=== PATIENT | female | born 1950 | race Hispanic/Latino ===

== ENCOUNTER 2020-12-20 17:05 | Inpatient (IN) | payer OTHER ==
--- OUTSIDE RECORDS SUMMARY | 2020-12-20 17:09 | XMS REPORT | Continuity of Care Document ---
:1950 Author Organization [facility] t Address [address] [place] [address] Care Team Providers Name Role Phone Chely Arias Primary Care Physician TAHIRA Attending Clinician Unavailable Doctor Unassigned, Name Attending Clinician Unavailable Therapy, Covid Infusion Attending Clinician Unavailable Kg MENDEZ, A Attending Clinician Elias XIAO, T Attending Clinician Unavailable Payers Payer Name Policy Type Policy Number Effective Date Expiration Date Aditi roberts [facility] MEDICARE [id number] 2020 ADVANTAGE 00:00:00 Problems Condition Condition Condition Status Onset Resolution Last Treating Co mments Source Name Details Category Date Date Treatment Clinician Date 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 [facility]: Hospita 00 l Allergies, Adverse Reactions, Alerts Allergy Allergy Status Severity Reaction(s) Onset Inactive Treating Comm ents Source Name Type Date Date Clinician Mobic Adverse Active irritation [facility] Family History Family Member Diagnosis Comments Start Date Stop Date Source Other [facility] Other [facility] Natural brother Hypertension [facility] Natural brother Thyroid disease Meth odist [facility] Natural father Cancer [facility] Natural mother Cancer [facility] Natural mother Hypertension [facility] Natural mother Lung cancer [facility] mother Migraines [facility] Social History Social Habit Start Date Stop Date Quantity Comments Source Exposure to Yes [facility] SARS-CoV-2 [place] [facility] (event) [facility] Tobacco use and 2018-12-18 2018-12-18 Never used [facility] exposure 00:00:00 00:00:00 Alcohol intake 2018-12-18 2018-12-18 Current [facility] 00:00:00 00:00:00 non-drinker of alcohol (finding) Sex [birth year] [facility] 00:00:00 00:00:00 Smoking Status Start Date Stop Date Source Unknown if ever smoked [facility] Never smoker [facility] al Medications Ordered Filled Start Stop Current Ordering Indication Dosage Frequency Signature Comments Components Source Medication Medication Date Date Medication? Clinician (SIG) Name Name naproxen Yes [id number] TAKE ONE UT (Naprosyn) 8-31 TABLET BY Heal th 500 MG 00:00: MOUTH tablet 00 TWICE A DAY golimumab Yes 1{dose} Q30D Inject 1 M ethodi (SIMPONI 3-[address] ARIA IV) 23:33: the Hospita 35 shoulder, l thigh, or buttocks every 30 (thirty) days. Next dose 07/2018 sulfaSALAzi Yes 1000mg Q.5D Take 1,000 Methodi ne 3-[address] (AZULFIDINE 23:33: mouth 2 Hos derian ) 500 mg 35 (two) l tablet times a day. cyclobenzap Yes 10mg Take 10 mg Methodi rine 3-[address] (FLEXERIL) 23:33: as needed Ho spita 10 mg 35 for muscle l tablet spasms. irbesartan Yes 300mg QD Take 300 Me thodi (AVAPRO) 3-[address] 300 MG 23:33: mouth Hospita tablet 35 daily. l predniSONE Yes 5mg Take 5 mg Me thodi (DELTASONE) 3-[address] 5 mg tablet 23:33: as needed. Hospita 35 l carvedilol Yes 12.5mg Q.5D Take 12.5 Methodi (COREG) 3-[address] 12.5 MG 23:33: mouth 2 Hospita tablet 35 (two) l times a day with meals. montelukast Yes 10mg QD Take 10 mg Methodi (SINGULAIR) 3-[address] 10 mg 23:33: nightly. Hospita tablet 35 l levocetiriz Yes 5mg Take 5 mg M ethodi ine (XYZAL) 3-[address] 5 MG tablet 23:33: as needed. Hospita 35 l Lactobacill Yes 1{tbl} QD Take 1 Me thodi us 3-[address] acidophilus 23:33: mouth Hospi ta (PROBIOTIC 35 daily. l ORAL) vitamin E Yes 1{tbl} QD Take 1 Meth damaris acetate 3-[address] (VITAMIN E 23:33: mouth Hospit a ORAL) 35 daily. l ascorbate Yes 1000mg QD Take 1,000 Methodi calcium 3-[address] (VITAMIN C 23:33: mouth Hospit a ORAL) 35 daily. l hydroCHLORO Yes 12.5mg QD Take 12.5 Methodi thiazide 3-[address] (HYDRODIURI 23:33: mouth Hospi ta L) 12.5 MG 35 daily. l tablet aspirin Yes 81mg QD Take 81 mg Meth damaris (ECOTRIN) 3-[address] 81 MG 23:33: daily. Hospita enteric 35 l coated tablet folic acid Yes 1mg QD Take 1 mg Me thodi (FOLVITE) 1 3-[address] MG tablet 23:33: daily. Hospit a 35 l Tramadol Tramadol Yes Maulik [address] [address] HCl HCl 01-08 [facility] as needed [facility] Carvedilol Carvedilol Yes Maulik as [facility] 01[facility]08 [facility] directed [facility] - Yes Maulik [address] [facility] [address] 01-08 [facility] Xeljanz XR Xeljanz XR Yes Maulik [address] [facility] 01-08 [facility] Celebrex Celebrex Yes Maulik [address] 01-08 [place] with food [facility] Lisinopril Lisinopril 2017- Yes Maulik [address] [facility] [address] 01[facility]08 [facility] Gabapentin Gabapentin 2017-0 Yes Maulik [address] 01[facility]08 [facility] [facility] PrednisoLON PrednisoLON 2017- Yes Maulik [address] E E 01-08 [place] with food [facility] - 00:00: or milk in Memoria 00 the l morning Outpati ent Clinics Lactobacill Yes Take by Un thais us 8-07 mouth. ity of acidophilus 06:57: [place] (PROBIOTIC 55 Medical ORAL) Branch METHOTREXAT Yes Take by Un thais E ORAL 8-07 mouth. ity of 06:57: [place] [address] Medical Branch vitamin E Yes Take by Univ ers acetate 8-07 mouth. ity of (VITAMIN E 06:57: [place] ORAL) 55 Medical Branch ergocalcife Yes Take by Un thais rol, 8-07 mouth. ity of vitamin D2, 06:57: [place] (VITAMIN D 55 Medical ORAL) Branch Lactobacill Yes Take by Un thais us 8-07 mouth. ity of acidophilus 06:57: [place] (PROBIOTIC 55 Medical ORAL) Branch METHOTREXAT Yes Take by Un thais E ORAL 8-07 mouth. ity of 06:57: [place] [address] Medical Branch vitamin E Yes Take by Univ ers acetate 8-07 mouth. ity of (VITAMIN E 06:57: [place] ORAL) Medical Branch ergocalcife Yes Take by Un thais rol, 8-07 mouth. ity of vitamin D2, 06:57: [place] (VITAMIN D 55 Medical ORAL) Branch Lactobacill Yes Take by Un thais us 8-07 mouth. ity of acidophilus 06:57: [place] (PROBIOTIC 55 Medical ORAL) Branch METHOTREXAT Yes Take by Un thais E ORAL 8-07 mouth. ity of 06:57: [place] [address] Medical Branch vitamin E Yes Take by Univ ers acetate 8-07 mouth. ity of (VITAMIN E 06:57: [place] ORAL) 55 Medical Branch ergocalcife Yes Take by Un thais rol, 8-07 mouth. ity of vitamin D2, 06:57: [place] (VITAMIN D 55 Medical ORAL) Branch Lactobacill Yes Take by Un thais us 8-07 mouth. ity of acidophilus 06:57: [place] (PROBIOTIC 55 Medical ORAL) Branch METHOTREXAT Yes Take by Un thais E ORAL 8-07 mouth. ity of 06:57: [place] 55 Medical Branch vitamin E Yes Take by Univ ers acetate 8-07 mouth. ity of (VITAMIN E 06:57: [place] ORAL) 55 Medical Branch ergocalcife Yes Take by Un thais rol, 8-07 mouth. ity of vitamin D2, 06:57: [place] (VITAMIN D 55 Medical ORAL) Branch Lactobacill Yes Take by Un thais us 8-07 mouth. ity of acidophilus 06:57: [place] (PROBIOTIC 55 Medical ORAL) Branch METHOTREXAT Yes Take by Un thais E ORAL 8-07 mouth. ity of 06:57: [place] 55 Medical Branch vitamin E Yes Take by Univ ers acetate 8-07 mouth. ity of (VITAMIN E 06:57: [place] ORAL) 55 Medical Branch ergocalcife Yes Take by Un thais rol, 8-07 mouth. ity of vitamin D2, 06:57: [place] (VITAMIN D 55 Medical ORAL) Branch Lactobacill Yes Take by Un thais us 8-07 mouth. ity of acidophilus 06:57: [place] (PROBIOTIC 55 Medical ORAL) Branch METHOTREXAT Yes Take by Un thais E ORAL 8-07 mouth. ity of 06:57: [place] 55 Medical Branch vitamin E Yes Take by Univ ers acetate 8-07 mouth. ity of (VITAMIN E 06:57: [place] ORAL) 55 Medical Branch ergocalcife Yes Take by Un thais rol, 8-07 mouth. ity of vitamin D2, 06:57: [place] (VITAMIN D 55 Medical ORAL) Branch Lactobacill Yes Take by Un thais us 8-07 mouth. ity of acidophilus 06:57: [place] (PROBIOTIC 55 Medical ORAL) Branch METHOTREXAT Yes Take by Un thais E ORAL 8-07 mouth. ity of 06:57: [place] 55 Medical Branch vitamin E Yes Take by Univ ers acetate 8-07 mouth. ity of (VITAMIN E 06:57: [place] ORAL) 55 Medical Branch ergocalcife Yes Take by Un thais rol, 8-07 mouth. ity of vitamin D2, 06:57: [place] (VITAMIN D 55 Medical ORAL) Branch tofacitinib Yes Take by Un thais citrate 8-07 mouth. ity of (XELJANZ 06:57: [place] ORAL) 54 Medical Branch montelukast Yes Take by Un thais sodium 8-07 mouth. ity of (SINGULAIR 06:57: [place] ORAL) 54 Medical Branch LISINOPRIL Yes Take by Uni vers ORAL 8-07 mouth. ity of 06:57: [place] [address] Medical Branch CELECOXIB Yes Take by Univ ers ORAL 8-07 mouth. ity of 06:57: [place] [address] Medical Branch tofacitinib Yes Take by Un thais citrate 8-07 mouth. ity of (XELJANZ 06:57: [place] ORAL) 54 Medical Branch tramadol Yes Take by Unive rs HCl 8-07 mouth. ity of (TRAMADOL 06:57: [place] ORAL) 54 Medical Branch montelukast Yes Take by Un thais sodium 8-07 mouth. ity of (SINGULAIR 06:57: [place] ORAL) 54 Medical Branch tramadol Yes Take by Unive rs HCl 8-07 mouth. ity of (TRAMADOL 06:57: [place] ORAL) 54 Medical Branch CARVEDILOL Yes Take by Uni vers ORAL 8-07 mouth. ity of 06:57: [place] [address] Medical Branch aspirin 81 Yes 81mg Take 81 mg U nivers mg chewable 11-21 by mouth ity of tablet 06:57: daily. [place] [address] Medical Branch FOLIC ACID Yes Take by Uni vers ORAL 8-07 mouth. ity of 06:57: [place] [address] Medical Branch ascorbate Yes Take by Univ ers calcium 8-07 mouth. ity of (VITAMIN C 06:57: [place] ORAL) 54 Medical Branch CARVEDILOL Yes Take by Uni vers ORAL 8-07 mouth. ity of 06:57: [place] [address] Medical Branch LISINOPRIL Yes Take by Uni vers ORAL 8-07 mouth. ity of 06:57: [place] [address] Medical Branch CELECOXIB 2018-0 Yes Take by Univ ers ORAL 8-07 mouth. ity of 06:57: [place] [address] Medical Branch tofacitinib Yes Take by Un thais citrate 8-07 mouth. ity of (XELJANZ 06:57: [place] ORAL) Medical Branch montelukast Yes Take by Un thais sodium 8-07 mouth. ity of (SINGULAIR 06:57: [place] ORAL) Medical Branch aspirin 81 0 Yes 81mg Take 81 mg U nivers mg chewable 8-07 by mouth ity of tablet 06:57: daily. [place] [address] Medical Branch tramadol Yes Take by Unive rs HCl 8-07 mouth. ity of (TRAMADOL 06:57: [place] ORAL) Medical Branch CARVEDILOL Yes Take by Uni vers ORAL 8-07 mouth. ity of 06:57: [place] [address] Medical [place] aspirin 81 Yes 81mg Take 81 mg U nivers mg chewable 8-07 by mouth ity of tablet 06:57: daily. [place] [address] Medical Branch FOLIC ACID Yes Take by Uni vers ORAL 8-07 mouth. ity of 06:57: [place] [address] Medical Branch ascorbate 0 Yes Take by [facility] ers calcium 8-07 mouth. ity of (VITAMIN C 06:57: [place] ORAL) Medical Branch FOLIC ACID 0 Yes Take by Uni vers ORAL 8-07 mouth. ity of 06:57: [place] [address] Medical Branch ascorbate 2018-0 Yes Take by [facility] ers calcium 8-07 mouth. ity of (VITAMIN C 06:57: [place] ORAL) Medical Branch LISINOPRIL 2017- Yes Take by Uni vers ORAL 8-07 mouth. ity of 06:57: [place] [address] Medical Branch CELECOXIB 2017-0 Yes Take by Univ ers ORAL 8-07 mouth. ity of 06:57: [place] [address] Medical Branch tofacitinib 2017-0 Yes Take by Un thais citrate 8-07 mouth. ity of (XELJANZ 06:57: [place] ORAL) Medical Branch montelukast 2017- Yes Take by Un thais sodium 8-07 mouth. ity of (SINGULAIR 06:57: [place] ORAL) Medical Branch tramadol 2018-0 Yes Take by Unive rs HCl 8-07 mouth. ity of (TRAMADOL 06:57: [place] ORAL) Medical Branch CARVEDILOL Yes Take by Uni vers ORAL 8-07 mouth. ity of 06:57: [address] Branch aspirin 81 Yes 81mg Take 81 mg U nivers mg chewable 8-07 by mouth ity of tablet 06:57: daily. [address] Branch FOLIC ACID Yes Take by Uni vers ORAL 8-07 mouth. ity of 06:57: [place] [address] Medical Branch ascorbate 0 Yes Take by Univ ers calcium 8-07 mouth. ity of (VITAMIN C 06:57: [place] ORAL) Medical Branch LISINOPRIL Yes Take by Uni vers ORAL 8-07 mouth. ity of 06:57: [place] [address] Medical Branch CELECOXIB Yes Take by Univ ers ORAL 8-07 mouth. ity of 06:57: [address] Branch tofacitinib Yes Take by Un thais citrate 8-07 mouth. ity of (XELJANZ 06:57: [place] ORAL) Medical Branch montelukast Yes Take by Un thais sodium 8-07 mouth. ity of (SINGULAIR 06:57: [place] ORAL) Medical Branch tramadol Yes Take by Unive rs HCl 8-07 mouth. ity of (TRAMADOL 06:57: [place] ORAL) Medical Branch CARVEDILOL Yes Take by Uni vers ORAL 8-07 mouth. ity of 06:57: [address] aspirin 81 Yes 81mg Take 81 mg U nivers mg chewable 8-07 by mouth ity of tablet 06:57: daily. [address] Branch FOLIC ACID Yes Take by Uni vers ORAL 8-07 mouth. ity of 06:57: [place] [address] Medical [place] ascorbate Yes Take by Univ ers calcium 8-07 mouth. ity of (VITAMIN C 06:57: [place] ORAL) Medical Branch LISINOPRIL Yes Take by Uni vers ORAL 8-07 mouth. ity of 06:57: [address] CELECOXIB Yes Take by Univ ers ORAL 8-07 mouth. ity of 06:57: [place] [address] Medical Branch tofacitinib 2018-0 Yes Take by Un thais citrate 8-07 mouth. ity of (XELJANZ 06:57: [place] ORAL) Medical Branch montelukast Yes Take by Un thais sodium 8-07 mouth. ity of (SINGULAIR 06:57: [place] ORAL) Medical Branch tramadol 0 Yes Take by Unive rs HCl 8-07 mouth. ity of (TRAMADOL 06:57: [place] ORAL) Medical Branch CARVEDILOL Yes Take by Uni vers ORAL 8-07 mouth. ity of 06:57: [address] Branch aspirin 81 Yes 81mg Take 81 mg U nivers mg chewable 8-07 by mouth ity of tablet 06:57: daily. [address] Branch FOLIC ACID Yes Take by Uni vers ORAL 8-07 mouth. ity of 06:57: [address] ascorbate Yes Take by Univ ers calcium 8-07 mouth. ity of (VITAMIN C 06:57: [place] ORAL) [address] [place] [address] LISINOPRIL Yes Take by Uni vers ORAL 8-07 mouth. ity of 06:57: [address] Branch CELECOXIB Yes Take by Univ ers ORAL 8-07 mouth. ity of 06:57: [address] LISINOPRIL Yes Take by Uni vers ORAL 8-07 mouth. ity of 06:57: [address] CELECOXIB Yes Take by Univ ers ORAL 8-07 mouth. ity of 06:57: [address] tofacitinib Yes Take by Un thais citrate 8-07 mouth. ity of (XELJANZ 06:57: [place] ORAL) Medical [place] montelukast Yes Take by Un thais sodium 8-07 mouth. ity of (SINGULAIR 06:57: [place] ORAL) Medical Branch tramadol 20180 Yes Take by Unive rs HCl 8-07 mouth. ity of (TRAMADOL 06:57: [place] ORAL) Medical Branch CARVEDILOL 0 Yes Take by Uni vers ORAL 8-07 mouth. ity of 06:57: [address] aspirin 81 Yes 81mg Take 81 mg U nivers mg chewable 8-07 by mouth ity of tablet 06:57: daily. [place] 54 Medical Branch FOLIC ACID 2018-0 Yes Take by Uni vers ORAL 8-07 mouth. ity of 06:57: [place] [address] Medical Branch ascorbate 0 Yes Take by Univ ers calcium 8-07 mouth. ity of (VITAMIN C 06:57: [place] ORAL) 54 Medical Branch butalbital- Yes 1{tbl} Take 1 Un thais acetaminoph 8-07 tablet by ity of en-caff 00:00: mouth [place] 50-325-40 00 every 6 Medical mg tablet (six) Branch hours as needed for Headache (Headache) . butalbital- Yes 1{tbl} Take 1 Un thais acetaminoph 8-07 tablet by ity of en-caff 00:00: mouth [place] 50-325-40 00 every 6 Medical mg tablet (six) Branch hours as needed for Headache (Headache) . butalbital- Yes 1{tbl} Take 1 Un thais acetaminoph 8-07 tablet by ity of en-caff 00:00: mouth [place] 50-325-40 00 every 6 Medical mg tablet (six) Branch hours as needed for Headache (Headache) . butalbital- Yes 1{tbl} Take 1 Un thais acetaminoph 8-07 tablet by ity of en-caff 00:00: mouth [place] 50-325-40 00 every 6 Medical mg tablet (six) Branch hours as needed for Headache (Headache) . butalbital- Yes 1{tbl} Take 1 Un thais acetaminoph 8-07 tablet by ity of en-caff 00:00: mouth [place] 50-325-40 00 every 6 Medical mg tablet (six) Branch hours as needed for Headache (Headache) . butalbital- Yes 1{tbl} Take 1 Un thais acetaminoph 8-07 tablet by ity of en-caff 00:00: mouth [place] 50-325-40 00 every 6 Medical mg tablet (six) Branch hours as needed for Headache (Headache) . butalbital- Yes 1{tbl} Take 1 Un thais acetaminoph 8-07 tablet by ity of en-caff 00:00: mouth [place] 50-325-40 00 every 6 Medical mg tablet (six) Branch hours as needed for Headache (Headache) . Montelukast Montelukast Yes Maulik not [facility] Sodium Sodium [facility] defined [facility] Celecoxib Celecoxib Yes Maulik not [facility] cyclobenzap cyclobenzap Yes Maulik not [facility] rine rine [facility] defined [facility] Irbesartan Irbesartan Yes Maulik not [facility] Sulfasalazi Sulfasalazi Yes Maulik not [facility] ne ne [facility] defined [facility] Rinvoq Rinvoq Yes Maulik not [facility] defined [facility] Levocetiriz Levocetiriz Yes Maulik not [facility] ine-Loratad ine-Loratad [facility] defined [facility] Folic Acid Folic Acid Yes Maulik not [facility] defined [facility] Immunizations Ordered Filled Immunization Date Status Comments [facility] Immunization Name Name SARS-COV-2 COVID-19 2020-06-13 Completed Unive rsity of PFIZER VACCINE 00:00:00 [facility] SARS-COV-2 COVID-19 2020-06-13 Completed Unive rsity of PFIZER VACCINE 00:00:00 [facility] SARS-COV-2 COVID-19 2020-06-13 Completed Unive rsity of PFIZER VACCINE 00:00:00 [facility] SARS-COV-2 COVID-19 2020-06-13 Completed Unive rsity of PFIZER VACCINE 00:00:00 [facility] SARS-COV-2 COVID-19 2020-06-13 Completed Unive rsity of PFIZER VACCINE 00:00:00 [facility] SARS-COV-2 COVID-19 2020-06-13 Completed Unive rsity of PFIZER VACCINE 00:00:00 [facility] SARS-COV-2 COVID-19 2020-06-13 Completed Unive rsity of PFIZER VACCINE 00:00:00 [facility] SARS-COV-2 COVID-19 2020-05-16 Completed Unive rsity of PFIZER VACCINE 00:00:00 [facility] SARS-COV-2 COVID-19 2020-05-16 Completed Unive rsity of PFIZER VACCINE 00:00:00 [facility] SARS-COV-2 COVID-19 2020-05-16 Completed Unive rsity of PFIZER VACCINE 00:00:00 [facility] SARS-COV-2 COVID-19 2020-05-16 Completed Unive rsity of PFIZER VACCINE 00:00:00 [facility] SARS-COV-2 COVID-19 2020-05-16 Completed Unive rsity of PFIZER VACCINE 00:00:00 [facility] SARS-COV-2 COVID-19 2020-05-16 Completed Unive rsity of PFIZER VACCINE 00:00:00 [facility] SARS-COV-2 COVID-19 2020-05-16 Completed Unive rsity of PFIZER VACCINE 00:00:00 [facility] Vital Signs Vital Name Observation Time Observation Value Comments Source Systolic blood 2020-12-12 17:26:00 99 mm[Hg] Univer sity of pressure [facility] Diastolic blood 2020-12-12 17:26:00 51 mm[Hg] Unive rsity of pressure [facility] Heart rate 2020-12-12 17:26:00 83 /min [facility] Body temperature 2020-12-12 17:26:00 36.72 Jessica [facility] Respiratory rate 2020-12-12 17:26:00 20 /min [facility] Oxygen saturation in 2020-12-12 17:26:00 96 /min [facility] Arterial blood by [facility] Pulse oximetry [place] Body height 2020-12-12 16:43:00 170.2 cm [facility] Body weight 2020-12-12 16:43:00 81.647 kg [facility] BMI 2020-12-12 16:43:00 28.19 kg/m2 [facility] Procedures Procedure Date / Time Performed Performing Clinician Wei SIMONSC2 CONSENT 2020-12-18 05:01:00 Doctor Unassigned, No Unive rsity of [facility] [place] [facility] CONSENT/REFUSAL FOR 2020-12-12 05:01:00 [facility], [facility] AND Name Medical Branch TREATMENT Plan of Care Planned Activity Planned Date Details Comments Source Future Scheduled Test COVID-19 VACCINE (1) [facility] [code = COVID-19 VACCINE (1)] Future Scheduled Test Hepatitis C screening [facility] (procedure) [code = 093875313] Future Scheduled Test BREAST CANCER SCREENING [facility] [code = BREAST CANCER SCREENING] Future Scheduled Test COLONOSCOPY SCREENING [facility] [code = COLONOSCOPY SCREENING] Future Scheduled Test SHINGLES VACCINES (#1) [facility] [code = SHINGLES VACCINES (#1)] Future Scheduled Test 65+ PNEUMOCOCCAL Me [facility] VACCINE (1 of 1 - PPSV23) [code = 65+ PNEUMOCOCCAL VACCINE (1 of 1 - PPSV23)] Future Scheduled Test INFLUENZA VACCINE [code [facility] = INFLUENZA VACCINE] Encounters Start End Encounter Admission Attending Care Care Encounter Source Date/Time Date/Time Type Type Clinicians Facility Department ID 2020-10-06 Outpatient [facility] [id number] [place] 13:18:15 [facility] 2020-12-18 2020-12-18 Orders Doctor NILSA [id number] [id number] Univers 00:00:00 00:00:00 Only Unassigned, JASEN [id number] ity of [place] [facility] [id number] Trung as [phone] [facility] ananbella 009 Branch 2020-12-12 2020-12-12 Nurse Therapy, Adc Covid Infusion [facility] [id number] Univers 08:34:40 09:34:40 Visit Brian Saul [id number] [id number] [id number] [facility] 053 Branch 2020-12-12 2020-12-12 Orders Doctor NILSA [id number] Univers 00:00:00 00:00:00 Only Unassigned, JASEN [id number] ity [facility] [place] [facility] [id number] Trung as [phone] [facility] annabella 009 Branch 2020-12-10 2020-12-10 Letter NILSA Griffin 1.2.840.114 [id number] Univers 00:00:00 00:00:00 (Out) Anabel T JASEN [id number] it y of HOSPITAL [id number] [place] as [id number] [facility] 019 Branch 2020-12-08 2020-12-08 Letter Doctor NILSA 1.2.840.114 [id number] Univers 00:00:00 00:00:00 (Out) Unassigned, JASEN [id number] ity of [place] [facility] [id number] Trung as [id number] [facility] 044 [place] 2020-12-08 2020-12-08 Letter Doctor NILSA [id number] [id number] Univers 00:00:00 00:00:00 (Out) Unassigned, JASEN [id number] ity of [place] [facility] [id number] Trung as [phone] [address] 2020-12-08 2020-12-08 Letter Doctor NILSA 1.2.840.114 [id number] Univers 00:00:00 00:00:00 (Out) Unassigned, JASEN [id number] ity of [place] [facility] [id number] Trung as [id number] [address] 2020-12-04 2020-12-04 Refill Tahira [facility] 1.2.840.114 [id number] [place] 00:00:00 00:00:00 Son CORLEYBRAN [id number] H [facility] MEDICAL [id number] [place] 4 [id number] 2020-12-04 2020-12-04 Refill Tahira [facility] 1.2.840.114 [id number] 00:00:00 00:00:00 Marilynbryan ANTONIO [id number] MEDICAL [id number] [place] 3 [id number] 2020-10-27 2020-10-27 Telephone CYNTHIA Hoffmann [facility] [id number] 00:00:00 00:00:00 Son MARISELA [id number] MEDICAL [id number] [place] 1 [id number] 2020-10-08 2020-10-08 Office CYNTHIA Hoffmann [facility] 1.2.840.114 [id number] 11:30:28 12:40:02 Visit Son ANTONIO [id number] MEDICAL [id number] PLAZA [id number] 2020-10-07 2020-10-07 Abstract CYNTHIA Hoffmann [facility] [id number] 00:00:00 00:00:00 Son ANTONIO [id number] MEDICAL [id number] PLAZA [id number] 2020-02-17 2020-02-17 [facility] [id number] 2020-02-11 2020-02-11 [facility] [id number] [facility] 2020-01-27 2020-01-27 [facility] [id number] [facility] 2020-01-23 2020-01-23 [facility] [id number] [facility] 2019-12-31 2019-12-31 [facility] [id number] [facility] 2019-11-18 2019-11-18 [facility] [id number] [address] 10:30:00 10:30:00 [facility] 2019-10-16 2019-10-16 [facility] [id number] [address] 09:45:00 09:45:00 [facility] 2019-10-08 2019-10-08 [facility] [id number] [address] 09:42:00 09:42:00 [facility] 2019-10-07 2019-10-07 [facility] [id number] [address] 22:11:00 22:11:00 [facility] 2019-09-26 2019-09-26 [facility] [id number] [address] 13:00:00 13:00:00 [facility] 2019-09-23 2019-09-23 [facility] [id number] [address] 15:09:00 15:09:00 [facility] 2019-09-17 2019-09-17 [facility] [id number] 10:30:00 10:30:00 [facility] 2018-12-19 2018-12-19 [facility] [id number] 14:00:00 14:00:00 [facility] 2018-06-07 2018-06-07 [facility] [id number] [facility] 10:30:00 10:30:00 t [facility] 2018-04-19 2018-04-19 [facility] [id number] 13:30:00 13:30:00 [facility] 2018-01-08 2018-01-08 [facility] [id number] 10:00:00 10:00:00 [facility] Results This patient has no known results.
[2020-12-20] MEDS ORDERED: METHYLPREDNISOLONE 125 MG INJ ONE (18:00)
--- NOTE | 2020-12-20 18:17 | RAD REPORT ---
EXAM DESCRIPTION: RAD - Chest Single View - 12/20/2020 6:08 pm CLINICAL HISTORY: cough COMPARISON: CHEST SINGLE VIEW dated 12/10/2013; CHEST PA AND LAT 2 VIEW dated 11/21/2013; CHEST PA AND LAT 2 VIEW dated 09/20/2008; CHEST SINGLE VIEW dated 10/25/2007 FINDINGS: Lines: None. Lungs: Mild to mild irregular airspace disease bilaterally with areas of more confluence in the left lung base. Pleural: No significant pleural effusions or pneumothorax. Cardiac: The heart size is within normal limits. Bones: No acute fractures. Other: IMPRESSION: Mild to mild bilateral irregular airspace disease concerning for multifocal pneumonia, i ncluding Covid-19
--- NOTE | 2020-12-20 18:21 | EDPHYS ---
Physician Documentation [facility] Name: Yulissa Garcia Age: 70 yrs Sex: Female : 1950 Arrival Date: 12/20/2020 Time: 17:15 Bed 8 Private MD: ED Physician Nick Saul HPI: 12/20 18:13 This 70 yrs old Female presents to ER via EMS with complaints of Shortness Of sp3 Breath, COVID Positive. 18:13 70-year-old female with history of rheumatoid arthritis and COVID-19 positive status sp3 having already received Regeneron and is on home O2 now presents via EMS for worsening symptoms of dyspnea and hypoxia at home. Patient had Pfizer vaccine full course. Upon EMS arrival patient's O2 saturation on 4 L nasal cannula (although she had a really long cannula line) was 75%. Upon placing patient on nonrebreather mask, oxygen level improved to low 90s. Patient denies headache, chest pain, fever, abdominal pain, nausea, vomiting, any other symptoms at this time.. Historical: - Allergies: 17:04 No Known Allergies; rb3 - PMHx: 17:04 hypertension; Rheumotoid Arthritis; rb3 - Immunization history:: Adult Immunizations up to date, Client reports receiving the 2nd dose of the Covid vaccine, In June 2020 [employer]. - Social history:: Smoking status: Patient/guardian denies using. ROS: 18:17 Constitutional: Negative for fever, chills, and weight loss, Eyes: Negative for injury, sp3 pain, redness, and discharge, Neck: Negative for injury, pain, and swelling, Cardiovascular: Negative for chest pain, palpitations, and edema, Abdomen/GI: Negative for abdominal pain, nausea, vomiting, diarrhea, and constipation, Back: Negative for injury and pain, MS/Extremity: Negative for injury and deformity, Skin: Negative for injury, rash, and discoloration, Neuro: Negative for headache, weakness, numbness, tingling, and seizure, Psych: Negative for depression, anxiety, suicide ideation, homicidal ideation, and hallucinations, Allergy/Immunology: Negative for hives, rash, and allergies. 18:17 All other systems are negative. Exam: 18:17 Constitutional: This is a well developed, well nourished patient who is awake, alert, sp3 and in no acute distress. Head/Face: Normocephalic, atraumatic. Neck: Trachea midline, no thyromegaly or masses palpated, and no cervical lymphadenopathy. Supple, full range of motion without nuchal rigidity, or vertebral point tenderness. No Meningismus. Chest/axilla: Normal chest wall appearance and motion. Nontender with no deformity. No lesions are appreciated. Cardiovascular: Regular rate and rhythm with a normal S1 and S2. No gallops, murmurs, or rubs. Normal PMI, no JVD. No pulse deficits. Abdomen/GI: Soft, non-tender, with normal bowel sounds. No distension or tympany. No guarding or rebound. No evidence of tenderness throughout. Back: No spinal tenderness. No costovertebral tenderness. Full range of motion. Skin: Warm, dry with normal turgor. Normal color with no rashes, no lesions, and no evidence of cellulitis. Neuro: Awake and alert, GCS 15, oriented to person, place, time, and situation. Cranial nerves II-XII grossly intact. Motor strength 5/5 in all extremities. Sensory grossly intact. Cerebellar exam normal. Normal gait. Psych: Awake, alert, with orientation to person, place and time. Behavior, mood, and affect are within normal limits. 18:17 Respiratory: Exam negative for accessory muscles, bronchial sounds, chest pain, paradoxical movement, purse lip breathing, prolonged exhalation, respiratory distress, tachypnea, Respirations: Breath sounds: rales, rhonchi, Patient had labored breathing until she was placed on nonrebreather. While on oxygen, she exhibits no signs of respiratory distress.. Vital Signs: 17:04 BP 132 / 49; Pulse 54; Resp 25; Temp 98.0; Pulse Ox 97% ; Weight 81.65 kg; Height 5 ft. rb3 7 in. (170.18 cm); Pain 0/10; 18:00 BP 128 / 64; Pulse 57; Resp 22; Pulse Ox 91% on 6 lpm NC; rb3 20:30 BP 134 / 64; Pulse 55; Resp 14; Pulse Ox 96% on 6 lpm NC; jb4 21:30 BP 121 / 57; Pulse 58; Resp 12; Pulse Ox 96% on 5 lpm NC; jb4 17:04 Body Mass Index 28.19 (81.65 kg, 170.18 cm) rb3 MDM: 17:26 Patient medically screened. sp3 18:18 Data reviewed: vital signs, nurses notes, lab test result(s), EKG, radiologic studies. 3 ED course: Patient now O2 dependent and meets inpatient criteria for hypoxia secondary to viral COVID-19 pneumonia. Will admit to hospitalist team for continued care. Will start Lovenox, steroids IV, and maintain oxygen support. Patient is okay with the plan and has no further questions.. 12/20 17:26 Order name: Basic Metabolic Panel 3 12/20 17:26 Order name: CBC with Diff 3 12/20 17:26 Order name: LFT's sp3 12/20 17:26 Order name: Magnesium sp3 12/20 17:26 Order name: NT PRO-BNP 3 12/20 17:26 Order name: PT-INR 3 12/20 17:26 Order name: Troponin (emerg Dept Use Only) 3 12/20 17:26 Order name: Ferritin 3 12/20 17:26 Order name: CRP 3 12/20 19:17 Order name: CBC with Automated Diff EDPA 12/20 19:28 Order name: Protime (+INR) EDMS 12/20 19:39 Order name: Basic Metabolic Panel EDMS 12/20 19:39 Order name: Liver (Hepatic) Function EDMS 12/20 19:39 Order name: Troponin (Emerg Dept Use Only) EDPA 12/20 17:26 Order name: XRAY Chest (1 view) 3 12/20 17:26 Order name: EKG; Complete Time: 21:18 3 12/20 17:26 Order name: Cardiac monitoring; Complete Time: 18:41 3 12/20 17:26 Order name: EKG - Nurse/Tech; Complete Time: 19:59 3 12/20 17:26 Order name: IV Saline Lock; Complete Time: 18:40 3 12/20 17:26 Order name: Labs collected and sent; Complete Time: 18:40 3 12/20 17:26 Order name: O2 Per Protocol; Complete Time: 18:41 3 12/20 17:26 Order name: O2 Sat Monitoring; Complete Time: 18:41 3 12/20 18:17 Order name: RAD; Complete Time: 18:21 EDPA 12/20 19:39 Order name: NT PRO-BNP EDMS 12/20 19:39 Order name: C-Reactive Protein EDMS 12/20 19:39 Order name: Magnesium EDMS 12/20 21:39 Order name: Ferritin EDMS Administered Medications: 17:43 Drug: SOLU-Medrol (methylPrednisoLONE) 125 mg Route: IVP; Site: right forearm; rb3 18:00 Follow up: Response: No adverse reaction rb3 Disposition Summary: 12/20/20 18:20 Hospitalization Ordered Hospitalization Status: Inpatient Admission sp3 Condition: Stable sp3 Problem: an acute exacerbation sp3 Symptoms: are unchanged sp3 Bed/Room Type: Standard sp3 Provider: Raji Mo(12/20/20 18:27) sp3 Location: Telemetry/MedSurg (Inpatient)(12/20/20 20:35) cg Room Assignment: [facility](12/20/20 20:35) cg Diagnosis - Pneumonia due to SARS-associated coronavirus sp3 - Acute respiratory failure with hypoxia sp3 Forms: - Medication Reconciliation Form sp3 - SBAR form sp3 Signatures: Dispatcher [employer] EDMarta Fernandes RN DAMEON iw Ambika Garcia RN RN cg Lori Mojica RN RN rb3 Nick Saul MD MD sp3 Corrections: (The following items were deleted from the chart) 18:22 18:20 El Lindquist sp3 iw 18:27 18:22 Nelson Esparza iw sp3 20:35 18:20 Telemetry/MedSurg (Inpatient) sp3 cg 20:35 18:20 sp3 cg
--- NOTE | 2020-12-20 18:21 | ER ---
Nurse's Notes [facility] Name: Yulissa Garcia Age: 70 yrs Sex: Female : 1950 Arrival Date: 12/20/2020 Time: 17:15 Bed 8 Private MD: Diagnosis: Pneumonia due to SARS-associated coronavirus;Acute respiratory failure with hypoxia Presentation: 12/20 17:04 Chief complaint: EMS states: Pt was on oxygen 2 L NC on an extended line and O2 sat rb3 75%. EMS changed the line and put her 4 L NC and her O2 sat 85%. They switched her to a non-rebreather on 12 L and her O2 went up to 95-96%. Pt was vaccinated in June and received the antibodies on December 12, 2020. History of Rheumotoid arthritis and HTN. NKDA. BP 124/83, P 58, T 98.0. Coronavirus screen: Vaccine status: Patient reports receiving the 2nd dose of the covid vaccine. Pt reports that she got vaccinated in June 2020 shortness of breath. Ebola Screen: Patient denies travel to an Ebola-affected area in the 21 days before illness onset. Initial Sepsis Screen: Does the patient meet any 2 criteria? No. Patient's initial sepsis screen is negative. Does the patient have a suspected source of infection? Yes: Other: COVID. Risk Assessment: Do you want to hurt yourself or someone else? Patient reports no desire to harm self or others. Onset of symptoms. 17:04 Method Of Arrival: EMS: [facility] rb3 17:04 Acuity: MATTIE 3 rb3 Triage Assessment: 17:04 General: Appears in no apparent distress. comfortable, Behavior is calm, cooperative, rb3 Denies fever. Pain: Denies pain. Neuro: Level of Consciousness is awake, alert, obeys commands, Oriented to person, place, time, situation. Cardiovascular: Patient's skin is warm and dry. Respiratory: Reports shortness of breath since Started today Onset: The symptoms/episode began/occurred today, the patient has moderate shortness of breath. GI: Reports diarrhea. : No signs and/or symptoms were reported regarding the genitourinary system. Historical: - Allergies: 17:04 No Known Allergies; rb3 - PMHx: 17:04 hypertension; Rheumotoid Arthritis; rb3 - Immunization history:: Adult Immunizations up to date, Client reports receiving the 2nd dose of the Covid vaccine, In June 2020 [employer] - Social history:: Smoking status: Patient/guardian denies using. Screenin:30 Abuse screen: Denies threats or abuse. Nutritional screening: No deficits noted. rb3 Tuberculosis screening: No symptoms or risk factors identified. Fall Risk None identified. Assessment: 17:30 General: See triage assessment. rb3 18:25 Reassessment: Patient appears in no apparent distress at this time. Patient and/or rb3 family updated on plan of care and expected duration. Pain level reassessed. Patient is alert, oriented x 3, equal unlabored respirations, skin warm/dry/pink. Provider at the bedside. 19:00 Reassessment: Patient appears in no apparent distress at this time. Patient and/or jb4 family updated on plan of care and expected duration. Pain level reassessed. Patient is alert, oriented x 3, equal unlabored respirations, skin warm/dry/pink. 20:00 Reassessment: Patient appears in no apparent distress at this time. Patient and/or jb4 family updated on plan of care and expected duration. Pain level reassessed. Patient is alert, oriented x 3, equal unlabored respirations, skin warm/dry/pink. 21:00 Reassessment: Patient appears in no apparent distress at this time. Patient and/or jb4 family updated on plan of care and expected duration. Pain level reassessed. Patient is alert, oriented x 3, equal unlabored respirations, skin warm/dry/pink. Vital Signs: 17:04 BP 132 / 49; Pulse 54; Resp 25; Temp 98.0; Pulse Ox 97% ; Weight 81.65 kg; Height 5 ft. rb3 7 in. (170.18 cm); Pain 0/10; 18:00 BP 128 / 64; Pulse 57; Resp 22; Pulse Ox 91% on 6 lpm NC; rb3 20:30 BP 134 / 64; Pulse 55; Resp 14; Pulse Ox 96% on 6 lpm NC; jb4 21:30 BP 121 / 57; Pulse 58; Resp 12; Pulse Ox 96% on 5 lpm NC; jb4 17:04 Body Mass Index 28.19 (81.65 kg, 170.18 cm) rb3 ED Course: 17:04 Arm band placed on right wrist. rb3 17:15 Patient arrived in ED. rb3 17:18 Nick Saul MD is Attending Physician. sp3 17:25 Inserted saline lock: 22 gauge in right forearm, using aseptic technique. kg 17:27 Triage completed. rb3 17:30 Patient has correct armband on for positive identification. Bed in low position. Call rb3 light in reach. Side rails up X 1. greens or grounds superintendent on. Pulse ox on. NIBP on. 18:20 El Lindquist FNP-C is Hospitalizing Provider. sp3 18:22 Nelson Esparza MD is Hospitalizing Provider. iw 18:27 Nelson Esparza MD is Hospitalizing Provider. sp3 18:27 Raji Mo MD is Hospitalizing Provider. sp3 18:38 Lori Mojica, RN is Primary Nurse. rb3 21:30 No provider procedures requiring assistance completed. Patient admitted, IV remains in jb4 place. Administered Medications: 17:43 Drug: SOLU-Medrol (methylPrednisoLONE) 125 mg Route: IVP; Site: right forearm; rb3 18:00 Follow up: Response: No adverse reaction rb3 Outcome: 18:20 Decision to Hospitalize by Provider. sp3 21:30 Admitted to Tele accompanied by tech, via stretcher, room 412, on monitor, with chart. jb4 21:30 Condition: stable 21:30 Discharge instructions given to patient, Instructed on the need for admit, Demonstrated understanding of instructions. 22:12 Patient left the ED. bb Signatures: Jessica Chambers RN RN bb Marta Christiansen RN RN iw Danny Randle RN RN jb4 Lori Mojica, DAMEON XIAO rb3 Pia Albarran, DAMEON XIAO kg Nick Saul MD MD sp3
[2020-12-20 19:14] LABS: Absolute Lymphocytes (CBC) 0.2 K/uL (0.7-4.9); Basophils % 0.2 % (0-1.3); Hematocrit 34.5 % (36.0-45.0); Lymphocytes % 1.2 % (15.3-44.8); MPV 7.5 fL (7.6-11.3)
[2020-12-20 19:18] LABS: Protime INR 1.15
[2020-12-20 19:39] LABS: ALT/SGPT 93 U/L (12-78); AST/SGOT 45 U/L (15-37); Albumin 2.9 g/dL (3.4-5.0); Alkaline Phosphatase 74 U/L (45-117); BUN Blood Urea Nitrogen 32 mg/dL (7-18); Bicarbonate 30 mmol/L (21-32); Bilirubin Direct 0.2 mg/dL (0-0.2); Bilirubin Total 0.6 mg/dL (0.2-1.0); Glucose Level 125 mg/dL (74-106); Magnesium 2.5 mg/dL (1.8-2.4); NT PRO-BNP 357 pg/mL (<125); Potassium 3.6 mmol/L (3.5-5.1); Protein, Total 6.7 g/dL (6.4-8.2); Sodium Level 142 mmol/L (136-145); Troponin (Emerg Dept Use Only) < 0.02 ng/mL (0.0-0.045)
[2020-12-20] MEDS ORDERED: ACETAMINOPHEN 500 MG TAB PO PRN (20:01)
[2020-12-20] MEDS ORDERED: ONDANSETRON 4 MG/2 ML VIAL IV PRN (20:01)
[2020-12-20] MEDS ORDERED: BENZONATATE 100 MG CAP PO PRN (20:01)
[2020-12-20] MEDS: NA CHLORIDE 0.9% 1,000 ML IV SCH (20:01)
[2020-12-20] MEDS ORDERED: ASCORBIC ACID 500 MG TABLET ONE (20:34)
[2020-12-20] MEDS ORDERED: NA CHLORIDE 0.9% 1,000 ML ONE (20:34)
[2020-12-20] MEDS ORDERED: METHYLPREDNISOLONE 40 MG INJ ONE (20:34)
[2020-12-20] MEDS: ASCORBIC ACID 500 MG TABLET PO SCH (20:44)
[2020-12-20] MEDS ORDERED: METHYLPREDNISOLONE 125 MG INJ IV SCH (21:00)
[2020-12-20 21:39] LABS: Ferritin 629.4 ng/mL (8-388)
[2020-12-20] MEDS: BARICITINIB 2 MG TABLET PO SCH (22:00)
[2020-12-21 00:04] VITALS: BMI 27.3
[2020-12-21] MEDS: TRAZODONE 50 MG TABLET PO PRN ×2 (00:23→20:26)
[2020-12-21] MEDS ORDERED: TRAZODONE 50 MG TABLET ONE (00:35)
[2020-12-21 05:34] LABS: Absolute Lymphocytes (CBC) 0.2 K/uL (0.7-4.9); Basophils % 0.1 % (0-1.3); Hematocrit 32.1 % (36.0-45.0); Lymphocytes % 1.5 % (15.3-44.8); MPV 8.2 fL (7.6-11.3); RBC Red Blood Cell Count 3.32 M/uL (3.86-4.86)
[2020-12-21 05:39] LABS: Albumin 2.5 g/dL (3.4-5.0); Bilirubin Total 0.5 mg/dL (0.2-1.0); C-Reactive Protein 20.2 mg/L (<3.00); Ferritin 538.9 ng/mL (8-388); Magnesium 2.3 mg/dL (1.8-2.4); Potassium 3.9 mmol/L (3.5-5.1); Protein, Total 5.9 g/dL (6.4-8.2)
[2020-12-21 07:51] LABS: Blood Morphology Comment NOT SEEN (NOT SEEN); Platelet Estimate ADEQ; White Blood Cell Scan OK (OK)
[2020-12-21 08:31] LABS: Urine Appearance CLEAR (Clear); Urine Bilirubin NEGATIVE (Negative); Urine Blood NEGATIVE (Negative); Urine Color YELLOW (Yellow); Urine Glucose NEGATIVE (Negative); Urine Protein NEGATIVE (Negative); Urine Urobilinogen 0.2 mg/dL (0.2-1.0); Urine pH 5.5 (5.0-7.0)
[2020-12-21 08:52] LABS: Urine Microscopic Reflex ORDER UMIC
[2020-12-21] MEDS ORDERED: HOME MED 1 EA UNK (Irbesartan [Irbesartan] 300 MG Tablet) PO SCH (09:00)
[2020-12-21] MEDS: BARICITINIB 2 MG TABLET PO SCH (09:00)
[2020-12-21] MEDS ORDERED: ENOXAPARIN 40 MG/0.4 ML SQ SCH (09:00)
[2020-12-21] MEDS ORDERED: POTASSIUM CL SA 10 MEQ TAB PO ONE (09:00)
[2020-12-21 09:17] LABS: Urine Bacteria <20 /HPF (<20); Urine Mucus LIGHT /HPF (NONE SEEN); Urine RBC <5 /HPF (NONE SEEN)
--- NOTE | 2020-12-21 09:20 | RAD REPORT ---
EXAM DESCRIPTION: CT - Chest For Pe Angio - 12/21/2020 7:41 am CLINICAL HISTORY: Chest pain COMPARISON: 2013 TECHNIQUE: Dynamically enhanced axial 3 mm thick images of the chest were obtained during administra tion of <100> mL Isovue 370 IV contrast. Coronal and oblique reconstruction images were generated and reviewed. Exam utilizes a protocol for optimal evaluation of pulmonary arterial tree. Maximum intensity projections 3D imaging was utilized All CT scans are performed using dose optimization technique as appropriate and may include automated exposure control or mA/KV adjustment according to patient size. FINDINGS: A pulmonary embolus is not seen. A thoracic aortic aneurysm is not noted. A pleural effusion is not seen. A pericardial effusion is not seen. Moderate bilateral ground-glass opacities within the lungs 4.9 centimeter peripherally calcified mass left lobe of liver unchanged is benign IMPRESSION: Negative for a pulmonary embolism. Moderate bilateral ground-glass opacities within the lungs probably Covid pneumonia
[2020-12-21] MEDS: NA CHLORIDE 0.9% 1,000 ML IV SCH ×2 (10:24→22:57)
[2020-12-21] MEDS: ASCORBIC ACID 500 MG TABLET PO SCH ×5 (10:26→20:30)
[2020-12-21] MEDS: carvediloL 12.5 MG TAB PO SCH ×2 (10:35→20:27)
[2020-12-21] MEDS: IRBESARTAN 150 MG TAB PO SCH (10:35)
[2020-12-21] MEDS: ATORVASTATIN 80 MG TAB PO SCH (10:36)
[2020-12-21] MEDS: VITAMIN D 1000 UNIT TAB PO SCH (10:36)
[2020-12-21] MEDS: ZINC SULFATE 220 MG CAP PO SCH (10:37)
[2020-12-21] MEDS: METHYLPREDNISOLONE 40 MG INJ IV SCH ×3 (10:37→20:30)
--- NOTE | 2020-12-21 13:44 | P.HP ---
Certification for Inpatient Patient admitted to: Inpatient With expected LOS: >2 Midnights Practitioner: I am a practitioner with admitting privileges, knowledge of patient current condition, hospital course, and medical plan of care. Services: Services provided to patient in accordance with Admission requirements found in Title 42 Section 412.3 of the Code of Federal Regulations Patient History Date of Service: 12/21/20 Reason for admission: SHORT OF BREATH, LOW OXYGEN SAT AT 77% RA ATHOME. History of Present Illness: ORLIN IS IMMUNOCOMPROMISED PATIENT WITH HISTORY OF RA AND ON SULFASALAZIDE AND LARRY WAS DIAGNOSED WITH COVID INFECTION ABOUT A WEEK OR SO AGO. SHE HAS BEEN GIVEN IVERMECTIN AND MAB INITIALLY, THEN SHE HAD HYPOXIA DOWN TO 88% SO I STARTED HER ON HOME OXYGEN AND ORAL STEROIDS. SHE IS GRADUALLY WORSE AND HYPOXIA GOT WORSE SO SHE CAME TO ER. Allergies No Known Allergies Allergy (Unverified 12/20/20 17:34) Home medications list reviewed: Yes Home Medications: Carvedilol [Coreg] 12.5 mg PO BID 12/20/20 Atorvastatin Calcium [Lipitor] 80 mg PO DAILY 12/21/20 Irbesartan 300 mg PO DAILY 12/21/20 - Past Medical/Surgical History Has patient received pneumonia vaccine in the past: No -: Hypertension -: High Cholesterol -: Rheumatoid Arthritis - Social History Smoking Status: Never smoker Alcohol use: No CD- Drugs: No Review of Systems 10-point ROS is otherwise unremarkable General: Weakness, Malaise Respiratory: Shortness of Breath Physical Examination - Vital Signs Temperature: 97.5 F Blood Pressure: 125/60 Pulse: 54 Respirations: 21 Pulse Ox (%): 90 - Physical Exam General: Oriented x3, Moderate distress HEENT: Atraumatic, PERRLA, Mucous membr. moist/pink, EOMI, Sclerae nonicteric Neck: Supple, 2+ carotid pulse no bruit, No LAD, Without JVD or thyroid abnormality Respiratory: Diminished Cardiovascular: Regular rate/rhythm, Normal S1 S2 Gastrointestinal: Normal bowel sounds, No tenderness Musculoskeletal: No tenderness Integumentary: No rashes Neurological: Normal gait, Normal speech, Normal strength at 5/5 x4 extr, Normal tone, Normal affect Lymphatics: No axilla or inguinal lymphadenopathy - Studies Laboratory Data (last 24 hrs) 12/20/20 17:26: PT Cancelled, INR Cancelled 12/20/20 17:26: WBC Cancelled, Hgb Cancelled, Hct Cancelled, Plt Count Cancelled 12/20/20 17:26: Sodium Cancelled, Potassium Cancelled, BUN Cancelled, Creatinine Cancelled, Glucose Cancelled, Magnesium Cancelled, Total Bilirubin Cancelled, AST Cancelled, ALT Cancelled, Alkaline Phosphatase Cancelled Assessment and Plan - Problems (Diagnosis) (1) Pneumonia due to COVID-19 virus Current Visit: Yes Status: Acute Plan: IV STEROIDS OXYGEN. SO FAR SHE NEEDS ONLY 5 LT NC. HER CRP IS 20. SHE DOES NOT QUALIFY FOR BARICITIMIB. BEING VACCINATED AND TREATED ALREADY HPI SHE SHOULD DO WELL HOPEFULLY. (2) Rheumatoid arthritis Current Visit: Yes Status: Chronic Plan: THIS GIVES HER IMMUNOSUPPRESSED STATUS. - Advance Directives Does patient have a Living Will: No Does patient have a Durable POA for Healthcare: No
--- NOTE | 2020-12-21 16:57 | EKG ---
Test Date: 2020-12-20 Test Time: 19:19:34 Cataloging Assistant: LINH MEASUREMENT RESULTS: Intervals: Rate: 56 [place]: 160 QRSD: 88 QT: 476 QTc: 459 [place]: P: 12 [place]: 160 QRS: -6 T: 61 INTERPRETIVE STATEMENTS: Sinus bradycardia Otherwise normal ECG Compared to ECG 12/10/2013 12:09:28 Myocardial infarct finding no longer present Electronically Signed On 12-21-20 16:55:39 CDT by Everton Campa
[2020-12-21] MEDS: RIVAROXABAN 20 MG TABLET PO SCH (17:01)
[2020-12-22 06:10] LABS: Absolute Lymphocytes (CBC) 0.4 K/uL (0.7-4.9); Hematocrit 31.9 % (36.0-45.0); Lymphocytes % 2.3 % (15.3-44.8); MPV 8.2 fL (7.6-11.3)
[2020-12-22 07:24] LABS: Albumin 2.3 g/dL (3.4-5.0); Bilirubin Total 0.4 mg/dL (0.2-1.0); Ferritin 554.8 ng/mL (8-388); Magnesium 2.2 mg/dL (1.8-2.4); Potassium 3.9 mmol/L (3.5-5.1); Protein, Total 5.4 g/dL (6.4-8.2)
[2020-12-22] MEDS: VITAMIN D 1000 UNIT TAB PO SCH (08:31)
[2020-12-22] MEDS: IRBESARTAN 150 MG TAB PO SCH (08:31)
[2020-12-22] MEDS: ATORVASTATIN 80 MG TAB PO SCH (08:32)
[2020-12-22] MEDS: ZINC SULFATE 220 MG CAP PO SCH (08:32)
[2020-12-22] MEDS: METHYLPREDNISOLONE 40 MG INJ IV SCH ×2 (08:33→13:11)
[2020-12-22] MEDS: carvediloL 12.5 MG TAB PO SCH ×2 (08:40→19:47)
[2020-12-22] MEDS: ASCORBIC ACID 500 MG TABLET PO SCH ×4 (08:45→19:49)
[2020-12-22] MEDS ORDERED: POTASSIUM CL SA 10 MEQ TAB PO ONE (09:00)
[2020-12-22 09:33] LABS: Blood Morphology Comment NOT SEEN (NOT SEEN); Platelet Estimate ADEQ; White Blood Cell Scan OK (OK)
[2020-12-22] MEDS: NA CHLORIDE 0.9% 1,000 ML IV SCH (11:34)
--- NOTE | 2020-12-22 13:08 | P.PN ---
Subjective Date of Service: 12/22/20 Chief Complaint: SHORT OF BREATH, LOW OXYGEN SAT AT 77% RA ATHOME. Subjective: Improving SHE IS STABLE, IMPROVED AND IS WALKING INSIDE THE ROOM. Review of Systems 10-point ROS is otherwise unremarkable General: Weakness, Malaise Respiratory: Shortness of Breath Physical Examination - Vital Signs Temperature: 98.1 F Blood Pressure: 150/73 Pulse: 53 Respirations: 17 Pulse Ox (%): 91 - Physical Exam General: Oriented x3, Moderate distress HEENT: Atraumatic, PERRLA, EOMI Neck: Supple, JVD not distended Respiratory: Clear to auscultation bilaterally, Normal air movement Cardiovascular: Regular rate/rhythm, Normal S1 S2 Gastrointestinal: Normal bowel sounds, No tenderness Musculoskeletal: No tenderness Integumentary: No rashes Neurological: Normal speech, Normal tone, Normal affect Lymphatics: No axilla or inguinal lymphadenopathy - Studies Medications List Reviewed: Yes Assessment And Plan - Current Problems (Diagnosis) (1) Pneumonia due to COVID-19 virus Current Visit: Yes Status: Acute Plan: IV STEROIDS OXYGEN. SO FAR SHE NEEDS ONLY 5 LT NC. HER CRP IS 20. SHE DOES NOT QUALIFY FOR BARICITIMIB. BEING VACCINATED AND TREATED ALREADY HPI SHE SHOULD DO WELL HOPEFULLY. CRP IS GOING DOWN. SHE SHOULD BE ABLE TO GO HOME IN AM. (2) Rheumatoid arthritis Current Visit: Yes Status: Chronic Plan: THIS GIVES HER IMMUNOSUPPRESSED STATUS.
[2020-12-22] MEDS ORDERED: FUROSEMIDE 20 MG/ 2ML VIAL IV ONE (15:00)
--- NOTE | 2020-12-22 16:01 | P.CNS ---
Date of Consult: 12/22/20 Reason for Consult: COVID penumonia Chief Complaint: SHORT OF BREATH, LOW OXYGEN SAT AT 77% RA ATHOME. History of Present Illness: AGe 70 AW Resp failure from COVID/ Received MAB, iverectin/ doign better Allergies No Known Allergies Allergy (Unverified 12/20/20 17:34) Home Medications: Carvedilol [Coreg] 12.5 mg PO BID 12/20/20 Atorvastatin Calcium [Lipitor] 80 mg PO DAILY 12/21/20 Irbesartan 300 mg PO DAILY 12/21/20 - Past Medical/Surgical History -: Hypertension -: High Cholesterol -: Rheumatoid Arthritis - Social History Alcohol use: No CD- Drugs: No Review of Systems 10-point ROS is otherwise unremarkable Physical Examination Temp Pulse Resp BP Pulse Ox 98.1 F 68 17 124/59 L 91 12/22/20 13:07 12/22/20 14:23 12/22/20 13:07 12/22/20 14:23 12/22/20 13:07 General: Alert, Oriented x3, Cooperative - Problems (1) Pneumonia due to COVID-19 virus Current Visit: Yes Status: Acute Plan: AGe 70 aw COVID penumonia/ Deandrewell on 5 l NCO2/ Ambulating/ labs reviewed/ plan for DC am/ o2 ordered/ one dpse of Lasix
[2020-12-22] MEDS: RIVAROXABAN 20 MG TABLET PO SCH (16:17)
[2020-12-22] MEDS: TRAZODONE 50 MG TABLET PO PRN ×2 (19:46→21:55)
[2020-12-22] MEDS: METHYLPREDNISOLONE 125 MG INJ IV SCH (19:48)
[2020-12-23 03:42] LABS: Absolute Lymphocytes (CBC) 0.3 K/uL (0.7-4.9); Basophils % 0.2 % (0-1.3); Hematocrit 30.6 % (36.0-45.0); Lymphocytes % 1.6 % (15.3-44.8); MPV 7.6 fL (7.6-11.3); RBC Red Blood Cell Count 3.18 M/uL (3.86-4.86)
[2020-12-23 03:59] LABS: Albumin 2.4 g/dL (3.4-5.0); Bilirubin Total 0.4 mg/dL (0.2-1.0); C-Reactive Protein 7.49 mg/L (<3.00); Ferritin 616.7 ng/mL (8-388); Magnesium 2.2 mg/dL (1.8-2.4); Potassium 3.9 mmol/L (3.5-5.1); Protein, Total 5.5 g/dL (6.4-8.2)
[2020-12-23] MEDS: carvediloL 12.5 MG TAB PO SCH (09:00)
[2020-12-23] MEDS ORDERED: POTASSIUM CL SA 10 MEQ TAB PO ONE (09:00)
[2020-12-23] MEDS: METHYLPREDNISOLONE 125 MG INJ IV SCH (09:28)
[2020-12-23] MEDS: IRBESARTAN 150 MG TAB PO SCH (09:28)
[2020-12-23] MEDS: ZINC SULFATE 220 MG CAP PO SCH (09:28)
[2020-12-23] MEDS: VITAMIN D 1000 UNIT TAB PO SCH (09:28)
[2020-12-23] MEDS: ATORVASTATIN 80 MG TAB PO SCH (09:28)
[2020-12-23] MEDS: ASCORBIC ACID 500 MG TABLET PO SCH ×2 (09:29→12:19)
[2020-12-23 12:58] VITALS: BP 134/64; TEMP 97
--- NOTE | 2020-12-23 13:09 | P.DS ---
Admission Date: 12/20/20 Discharge Date: 12/23/20 Disposition: ROUTINE DISCHARGE Discharge Condition: SERIOUS Reason for Admission: SHORT OF BREATH, LOW OXYGEN SAT AT 77% RA ATHOME. - Problems (1) Pneumonia due to COVID-19 virus Current Visit: Yes Status: Acute (2) Rheumatoid arthritis Current Visit: Yes Status: Chronic Brief History of Present Illness: ORLIN IS IMMUNOCOMPROMISED PATIENT WITH HISTORY OF RA AND ON SULFASALAZIDE AND LARRY WAS DIAGNOSED WITH COVID INFECTION ABOUT A WEEK OR SO AGO. SHE HAS BEEN GIVEN IVERMECTIN AND MAB INITIALLY, THEN SHE HAD HYPOXIA DOWN TO 88% SO I STARTED HER ON HOME OXYGEN AND ORAL STEROIDS. SHE IS GRADUALLY WORSE AND HYPOXIA GOT WORSE SO SHE CAME TO ER. ORLIN HAS COVID PNEUMONIA, THERE IS NO PE. SHE HAS BEEN ALRADY GIVEN MEDS AT HOME, STEROIDS, IVERMECTINE AND IV INFUSION. SHE GOT SCARED AND CAME. SHE IS BETTER. HER OXYGEN SAT IS 92% ON 4LT. SHE IS STABLE TO GO HOME AND FU. Vital Signs/Physical Exam: Temp Pulse Resp BP Pulse Ox 97 F 65 15 134/64 92 12/23/20 12:00 12/23/20 12:00 12/23/20 12:00 12/23/20 12:00 12/23/20 12:00 Laboratory Data at Discharge: WBC 16.30 K/uL (4.3-10.9) H 12/23/20 02:58 Hgb 10.1 g/dL (12.0-15.0) L 12/23/20 02:58 Hct 30.6 % (36.0-45.0) L 12/23/20 02:58 Plt Count 311 K/uL (152-406) 12/23/20 02:58 PT 13.3 SECONDS (9.5-12.5) H 12/20/20 19:04 INR 1.15 12/20/20 19:04 Sodium 144 mmol/L (136-145) 12/23/20 02:58 Potassium 3.9 mmol/L (3.5-5.1) 12/23/20 02:58 BUN 32 mg/dL (7-18) H 12/23/20 02:58 Creatinine 0.94 mg/dL (0.55-1.3) 12/23/20 02:58 Glucose 124 mg/dL (74-106) H 12/23/20 02:58 Magnesium 2.2 mg/dL (1.8-2.4) 12/23/20 02:58 Total Bilirubin 0.4 mg/dL (0.2-1.0) 12/23/20 02:58 AST 37 U/L (15-37) 12/23/20 02:58 ALT 76 U/L (12-78) 12/23/20 02:58 Alkaline Phosphatase 63 U/L (45-117) 12/23/20 02:58 Home Medications: Carvedilol [Coreg] 12.5 mg PO BID 12/20/20 Atorvastatin Calcium [Lipitor] 80 mg PO DAILY 12/21/20 Irbesartan 300 mg PO DAILY 12/21/20 Followup: Raji Mo MD [Primary Care Provider] -
[2020-12-23 15:29] VITALS: O2SAT 92
== END 2020-12-23 15:25 | disposition home or self-care (01) | DRG 177 ==
LOC: ER 17:05 → ERHOLD 18:35 → 4TH 20:55
PROVIDERS: ADMIT Internal Medicine; ATTEND Internal Medicine
DX: U07.1 COVID-19 (principal); J12.82 Pneumonia due to coronavirus disease 2019; J96.01 Acute respiratory failure with hypoxia; M06.9 Rheumatoid arthritis, unspecified; I10 Essential (primary) hypertension
CPT/HCPCS: 36415; 71045; 71275; 80048; 80053; 80076; 81003; 81015; 82728; 83735; 83880; 84484; 85025; 85379; 85610; 86140; 87086; 87088; 93005; 94760; 96374; 99285; J1940; J2920; J2930; J7030; Q9967

== ENCOUNTER 2022-09-22 16:35 | Emergency (ER) | payer OTHER ==
--- OUTSIDE RECORDS SUMMARY | 2022-09-22 16:41 | XMS REPORT | Continuity of Care Document ---
:1950 Author Organization [facility] t Address [address] [facility] [address] [place] [address] Care Team Providers Name Role Phone Maurice Chairezesh Primary Care Physician GERALDO HOFFMANN Attending Clinician Unavailable Tammy Miramontes MD Attending Clinician Nia Benton PT Attending Clinician Unavailable ERNIE SCHROEDER Attending Clinician Unavailable Krishan Valencia Attending Clinician Unavailable Katherin Balderas MA Attending Clinician Unavailable Doctor Unassigned, [facility] Attending Clinician Unavailable BRIAN SAUL Attending Clinician Unavailable Therapy, [facility] Attending Clinician Unavailable Brian Saul MD Attending Clinician Anabel Griffin RN Attending Clinician Unavailable Only, Ang Db Test Attending Clinician Unavailable Acosta Lam MD Attending Clinician ACOSTA LAM Attending Clinician Unavailable Krishan Valencia Admitting Clinician Unavailable Payers Payer Name Policy Type Policy Number Effective Date Expiration Date S [facility] MEDICARE [id number] 2020 2021 ADVANTAGE 00:00:00 00:00:00 [employer] MEDICARE C1 [id number] Common Sp [facility]arsha - [facility] [employer]NA MEDICARE C1 [id number] [facility] C1 [id number] [facility] - [facility] MEDICARE C1 [id number] Common Sp harsha - [facility] Problems Condition Condition Condition Status Onset Resolution Last Treating Co mments Source Name Details Category Date Date Treatment Clinician Date Chronic Chronic Disease Active 2021-04 [facility] left left 05-25 Health shoulder shoulder 00:00: pain pain 00 Rotator Rotator Disease Active 2021-04 Last [facility] tendinitis tendinitis 00:00: t & Plan: , left , left 00 Formattin g of this note might be different from the original. 71-year-o ld female with left rotator cuff tendiniti s. X-rays today show no acute process with mild osteophyt ic changes. On exam, patient has good strength with pain with range of motion. We discussed conservat jalen treatment options oral medicatio ns, topical medicatio ns, steroid injection , and physical therapy. Administe red steroid injection to the left shoulder today. Patient tolerated well without any complicat ion. Recommend ed Mobic daily. Patient would like to hold off and use her current regimen that her rheumatoi d arthritis doctor prescribe s. Suggested topical Voltaren gel as directed. Home therapy exercise handout given today. We will see her back on as-needed basis. 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 [id number] Pain in Problem Active Comm on [id number] joint, Spirit foot, left - [facility] [id number] Closed Problem Active Common fracture Spirit of neck of - [facility] delayed healing [id number] Pain, Problem Active Commo n [id number] joint, Spirit foot, - [facility] right [facility] [id number] Pain, Problem Active Common joint, Spirit knee, - [facility] right [facility] [id number] Metatarsal Problem Active Co mmon stress Spirit fracture - [facility] of left [facility] foot with [facility] delayed Medical healing Center Allergies, Adverse Reactions, Alerts Allergy Allergy Status Severity Reaction(s) Onset Inactive Treating Comm ents Source Name Type Date Date Clinician meloxica meloxica Active irritation Co mmon m m in mouth Spirit - [facility] NO KNOWN Drug Active Univers ALLERGIE Class ity of S [facility] Family History Family Member Diagnosis Comments Start Date Stop Date Source Natural [facility] Natural [facility] father Cancer [facility] Natural mother Cancer [facility] Natural mother Hypertension [facility] mother Lung cancer [facility] mother Migraines [facility] Other [facility] Other [facility] Social History Social Habit Start Date Stop Date Quantity Comments Source History of tobacco Cigarette Smoker [facility] use Gender identity [facility] Exposure to 2022-03-14 2022-03-24 Not sure [facility] SARS-CoV-2 (event) 00:00:00 09:48:00 Cigarette 2022-03-24 2022-03-24 [facility] pack-years 00:00:00 00:00:00 Tobacco use and 2022-03-24 2022-03-24 Smokeless [facility] exposure 00:00:00 00:00:00 tobacco non-user Alcohol intake 2018-12-18 2018-12-18 Current [facility] 00:00:00 00:00:00 non-drinker of Hospital alcohol (finding) History of Social [address] function 00:00:00 00:00:00 Hospital Sex Ass[birth year] At [birth year] [facility] 00:00:00 00:00:00 Hospital Smoking Status Start Date Stop Date Source Unknown if ever smoked [facility] Ex-smoker 2022-03-24 00:00:00 2022-03-24 00:00:00 [facility] Never Smoker [facility] - [facility] Ce nter Medications Ordered Filled Start Stop Current Ordering Indication Dosage Frequency Signature Comments Components Source Medication Medication Date Date Medication? Clinician (SIG) Name Name bupivacaine 2021-04- No 4mL UT (Marcaine) 05-25 Health 0.25 % 16:00: 16:00 injection 4 00 :00 mL triamcinolo 2021-04- No 80mg UT ne 05-25 Health acetonide 16:00: 16:00 (Kenalog-40 00 :00 ) injection 80 mg triamcinolo 2021-04 No 80mg 80 mg, UT ne 05-25 Intra-claudio Health acetonide 16:00: 16:00 cular, (Kenalog-40 00 :00 Once PRN ) injection Procedure, 80 mg Starting on Raina 03/24/22 at 1000, For 1 dose bupivacaine 2021-04 4mL 4 mL, UT (Marcaine) 05-25 Injection, He alth 0.25 % 16:00: 16:00 Once PRN injection 4 00 :00 Procedure, mL Starting on Raina 03/24/22 at 1000, For 1 dose methotrexat 2021-04 Yes UT e 2.5 MG 2-07 Health tablet 00:00: 00 methotrexat 2021-04 Yes UT e 2.5 MG 2-07 Health tablet 00:00: 00 methotrexat 2021-04 Yes UT e 2.5 MG 2-07 Health tablet 00:00: 00 atorvastati 2021-04 Yes UT n (Lipitor) 0-18 Health 80 MG 00:00: tablet 00 atorvastati 2021-04 Yes UT n (Lipitor) 0-18 Health 80 MG 00:00: tablet 00 atorvastati 2021-04 Yes UT n (Lipitor) 0-18 Health 80 MG 00:00: tablet 00 cyclobenzap 2021-04 Yes UT rine 0-17 Health (Flexeril) 00:00: 5 MG tablet 00 folic acid 2021-04 Yes UT (Folvite) 1 0-17 Health MG tablet 00:00: 00 irbesartan 2021-04 Yes UT (Avapro) 0-17 Health 300 MG 00:00: tablet 00 cyclobenzap 2021-04 Yes UT rine 0-17 Health (Flexeril) 00:00: 5 MG tablet 00 folic acid 2021-04 Yes UT (Folvite) 1 0-17 Health MG tablet 00:00: 00 irbesartan 1 Yes UT (Avapro) 0-17 Health 300 MG 00:00: tablet 00 cyclobenzap 2021-04 Yes UT rine 0-17 Health (Flexeril) 00:00: 5 MG tablet 00 folic acid 2021-04 Yes UT (Folvite) 1 0-17 Health MG tablet 00:00: 00 irbesartan 1 Yes UT (Avapro) 0-17 Health 300 MG 00:00: tablet 00 carvedilol 2021-0 Yes UT (Coreg) 25 9-26 Health MG tablet 00:00: 00 carvedilol 2021-0 Yes UT (Coreg) 25 9-26 Health MG tablet 00:00: 00 carvedilol 2021-0 Yes UT (Coreg) 25 9-26 Health MG tablet 00:00: 00 montelukast 2021-0 Yes UT (Singulair) 9-16 Health 10 MG 00:00: tablet 00 montelukast 2021-0 Yes UT (Singulair) 9-16 Health 10 MG 00:00: tablet 00 montelukast 2021-0 Yes UT (Singulair) 9-16 Health 10 MG 00:00: tablet 00 sulfaSALAzi 2021-0 Yes 1000mg Q.5D Take 1,000 UT ne 9-04 mg by Health (Azulfidine 00:00: mouth in ) 500 MG 00 the tablet morning and 1,000 mg in the evening. AFTER MEALS. sulfaSALAzi 2-0 Yes 1000mg Q.5D Take 1,000 UT ne 9-04 mg by Health (Azulfidine 00:00: mouth in ) 500 MG 00 the tablet morning and 1,000 mg in the evening. AFTER MEALS. sulfaSALAzi 2-0 Yes 1000mg Q.5D Take 1,000 UT ne 9-04 mg by Health (Azulfidine 00:00: mouth in ) 500 MG 00 the tablet morning and 1,000 mg in the evening. AFTER MEALS. predniSONE 2021-0 Yes UT (Deltasone) 9-02 Health 5 MG tablet 00:00: 00 predniSONE 2-0 Yes UT (Deltasone) 9-02 Health 5 MG tablet 00:00: 00 predniSONE 2-0 Yes UT (Deltasone) 9-02 Health 5 MG tablet 00:00: 00 Diclofenac 2-0 Yes [id number] APPLY 2 UT Sodium 8-08 9109 GRAMS TO Health (Voltaren) 00:00: THE 1 % 00 AFFECTED external AREA DAILY gel Diclofenac 2021-0 Yes [id number] APPLY 2 UT Sodium 8-08 9109 GRAMS TO Health (Voltaren) 00:00: THE 1 % 00 AFFECTED external AREA DAILY gel Diclofenac 2021-0 Yes [id number] APPLY 2 UT Sodium 8-08 9109 GRAMS TO Health (Voltaren) 00:00: THE 1 % 00 AFFECTED external AREA DAILY gel hydroCHLORO 2021-0 Yes UT thiazide 6-24 Health (HYDRODiuri 00:00: l) 12.5 MG 00 tablet hydroCHLORO 2021-0 Yes UT thiazide 6-24 Health (HYDRODiuri 00:00: l) 12.5 MG 00 tablet hydroCHLORO 2021-0 Yes UT thiazide 6-24 Health (HYDRODiuri 00:00: l) 12.5 MG 00 tablet amLODIPine 2021-0 Yes UT (Norvasc) 5 5-26 Health MG tablet 00:00: 00 amLODIPine 2-0 Yes UT (Norvasc) 5 5-26 Health MG tablet 00:00: 00 amLODIPine 2-0 Yes UT (Norvasc) 5 5-26 Health MG tablet 00:00: 00 Sodium 2-0 2021- No [id number] 2mL UT Hyaluronate 09-02 Health (Viscosup) 18:54: 18:54 solution 43 :00 prefilled syringe 2 mL Sodium 2021-0 2021- No [id number] 2mL 2 mL, UT Hyaluronate 09-02 Injection, H birdh (Viscosup) 18:54: 18:54 Once PRN solution 43 :00 Procedure, prefilled Starting syringe 2 on Raina mL 09/02/21 at 1354, For 1 dose Sodium 2-0 2021- No [id number] 2mL UT Hyaluronate 08-23 Health (Viscosup) 18:01: 18:01 solution 03 :00 prefilled syringe 2 mL Sodium 2021-0 2021- No [id number] 2mL 2 mL, UT Hyaluronate 08-23 9109 Injection, H ealth ([place]os[place]) 18:01: 18:01 Once PRN solution 03 :00 Procedure, prefilled Starting syringe 2 on Mon mL 08/23/21 at 1301, For 1 dose Sodium 2021-0 2021- No [id number] 2mL UT Hyaluronate 08-16 9109 Health ([place]) 19:11: 19:11 solution 56 :00 prefilled syringe 2 mL Sodium 2021-0 2021- No [id number] 2mL 2 mL, UT Hyaluronate 08-16 9109 Injection, H ealth (V[place]os[place]) 19:11: 19:11 Once PRN solution 56 :00 Procedure, prefilled Starting syringe 2 on Mon mL 08/16/21 at 1411, For 1 dose triamcinolo 2021-2021- No [id number] 40mg UT ne 08-05 9109 Health acetonide 20:05: 20:05 (Kenalog-40 51 :00 ) injection 40 mg bupivacaine 2021-2021- No [id number] 1mL UT PF 08-05 9109 Health (Marcaine) 20:05: 20:05 0.5 % 51 :00 injection 1 mL lidocaine 2021-2021- No [id number] 1mL UT (Xylocaine) 08-05 9109 Health 1 % 20:05: 20:05 injection 1 51 :00 mL lidocaine 2021-0 2021- No [id number] 1mL 1 mL, UT (Xylocaine) 08-05 9109 Injection, [facility] 1 % 20:05: 20:05 Once PRN injection 1 51 :00 Procedure, mL Starting on Raina 08/05/21 at 1505, For 1 dose bupivacaine 2021-0 2021- No [id number] 1mL 1 mL, UT PF 08-05 9109 Injection, [facility] (Marcaine) 20:05: 20:05 Once PRN 0.5 % 51 :00 Procedure, injection 1 Starting mL on Raina 08/05/21 at 1505, For 1 dose triamcinolo 2021- No [id number] 40mg 40 mg, UT ne 08-0509 Intra-claudio Health acetonide 20:05: 20:05 cular, (Kenalog-40 51 :00 Once PRN ) injection Procedure, 40 mg Starting on Raina 08/05/21 at 1505, For 1 dose lidocaine 2021- No [id number] 1mL UT PF 06-10 Health (Xylocaine) 21:12: 21:12 1 % 46 :00 injection 1 mL bupivacaine 2021- No [id number] 1mL UT (Marcaine) 06-10 27565 Health 0.25 % 21:12: 21:12 injection 1 46 :00 mL triamcinolo 2021- No [id number] 10mg UT ne 06-10 Health acetonide 21:12: 21:12 (Kenalog) 46 :00 10 MG/ML injection 10 mg triamcinolo 2021- No [id number] 10mg 10 mg, UT ne 06-10 Intra-cl[facility] acetonide 21:12: 21:12 cular, (Kenalog) 46 :00 Once PRN 10 MG/ML Procedure, injection Starting 10 mg on Raina 06/10/21 at 1512, For 1 dose bupivacaine 2021- No [id number] 1mL 1 mL, UT (Marcaine) 06-10 Injection, H ealth 0.25 % 21:12: 21:12 Once PRN injection 1 46 :00 Procedure, mL Starting on Raina 06/10/21 at 1512, For 1 dose lidocaine 2021- No [id number] 1mL 1 mL, UT PF 06-10 Injection, [facility] (Xylocaine) 21:12: 21:12 Once PRN 1 % 46 :00 Procedure, injection 1 Starting mL on Raina 06/10/21 at 1512, For 1 dose Diclofenac Yes [id number] APPLY 2 UT Sodium 05-07 9109 GRAMS Health (Voltaren) 00:00: SPARINGLY 1 % 00 TO FFECTED external AREA (S) gel DAILY Diclofenac Yes [id number] APPLY 2 UT Sodium 1-21 9109 GRAMS Health ([facility]) 00:00: SPARINGLY 1 % 00 TO FFECTED external AREA (S) gel DAILY Diclofenac 2021-0 Yes [id number] APPLY 2 UT Sodium 1-21 9109 GRAMS Health ([facility]) 00:00: SPARINGLY 1 % 00 TO FFECTED external AREA (S) gel DAILY Diclofenac 2021-0 Yes [id number] APPLY 2 UT Sodium 1-21 9109 GRAMS [facility] ([facility]) 00:00: SPARINGLY 1 % 00 TO FFECTED external AREA (S) gel DAILY Diclofenac 0 Yes [id number] APPLY 2 UT Sodium 1-21 9109 GRAMS [facility] ([facility]) 00:00: SPARINGLY 1 % 00 TO FFECTED external AREA (S) gel DAILY Diclofenac 0 Yes [id number] APPLY 2 UT Sodium 1-21 9109 GRAMS [facility] ([facility]) 00:00: SPARINGLY 1 % 00 TO FFECTED external AREA (S) gel DAILY Diclofenac 0 Yes [id number] APPLY 2 UT Sodium 1-21 9109 GRAMS Health ([facility]) 00:00: SPARINGLY 1 % 00 TO FFECTED external AREA (S) gel DAILY Diclofenac 0 Yes [id number] APPLY 2 UT Sodium 1-21 9109 GRAMS [facility] ([facility]) 00:00: SPARINGLY 1 % 00 TO FFECTED external AREA (S) gel DAILY naproxen 2021-0 2021- No [id number] 500mg Q.5D Take 1 UT (Naprosyn) 1-20 06-06 9109 tablet Health 500 MG 00:00: 05:59 (500 mg tablet 00 :00 total) by mouth 2 (two) times a day. Diclofenac 2021-0 2021- No [id number] Q.5D Apply UT Sodium 1-20 - 9109 topically Health ([facility]) 00:00: 00:00 2 (two) 1 % 00 :00 times a external day. gel naproxen 2020-0 Yes [id number] TAKE ONE UT (Naprosyn) 8-31 TABLET BY [facility] th 500 MG 00:00: MOUTH tablet 00 TWICE A DAY naproxen 2020-0 Yes [id number] TAKE ONE UT (Naprosyn) 8-31 TABLET BY Heal th 500 MG 00:00: MOUTH tablet 00 TWICE A DAY naproxen 2020-0 Yes [id number] TAKE ONE UT (Naprosyn) 8-31 TABLET BY [facility] 500 MG 00:00: MOUTH tablet 00 TWICE A DAY naproxen 2020-0 Yes [id number] TAKE ONE UT (Naprosyn) 8-31 TABLET BY [facility] 500 MG 00:00: MOUTH tablet 00 TWICE A DAY naproxen 2020-0 Yes [id number] TAKE ONE UT (Naprosyn) 8-31 TABLET BY [facility] 500 MG 00:00: MOUTH tablet 00 TWICE A DAY naproxen 2020-0 Yes [id number] TAKE ONE UT (Naprosyn) 8-31 TABLET BY [facility] 500 MG 00:00: MOUTH tablet 00 TWICE A DAY naproxen 2020-0 Yes [id number] TAKE ONE UT (Naprosyn) 8-31 TABLET BY [facility] 500 MG 00:00: MOUTH tablet 00 TWICE A DAY naproxen 2020-0 Yes [id number] TAKE ONE UT (Naprosyn) 8-31 TABLET BY [facility] 500 MG 00:00: MOUTH tablet 00 TWICE A DAY naproxen 2020-0 Yes [id number] TAKE ONE UT (Naprosyn) 8-31 TABLET BY [facility] 500 MG 00:00: MOUTH tablet 00 TWICE A DAY naproxen 2020-0 Yes [id number] TAKE ONE UT (Naprosyn) 8-31 TABLET BY [facility] 500 MG 00:00: MOUTH tablet 00 TWICE A DAY naproxen 2020-0 Yes [id number] TAKE ONE UT (Naprosyn) 8-31 TABLET BY [facility] 500 MG 00:00: MOUTH tablet 00 TWICE A DAY naproxen 2020-0 Yes [id number] TAKE ONE UT (Naprosyn) 8-31 TABLET BY [facility] 500 MG 00:00: MOUTH tablet 00 TWICE A DAY naproxen 2020-0 Yes [id number] TAKE ONE UT (Naprosyn) 8-31 TABLET BY [facility] 500 MG 00:00: MOUTH tablet 00 TWICE A DAY naproxen 2020-0 Yes [id number] TAKE ONE UT (Naprosyn) 8-31 TABLET BY [facility] 500 MG 00:00: MOUTH tablet 00 TWICE A DAY naproxen 2021-0 1- No [id number] 500mg Q.5D Take 1 UT (Naprosyn) 6-24 07-25 tablet Health 500 MG 00:00: 04:59 (500 mg tablet 00 :00 total) by mouth 2 (two) times a day. naproxen 2020- No [id number] 500mg Q.5D Take 1 UT (Naprosyn) 10-08 tablet Health 500 MG 00:00: 04:59 (500 mg tablet 00 :00 total) by mouth 2 (two) times a day. Diclofenac Diclofenac 2019-04- No QID Diclofenac Sodium 1 % Sodium 1 % 0-08 11-06 Sodium 1 % 00:00: 00:00 00 :00 Diclofenac Diclofenac 2019-04- No QID Diclofenac Sodium 1 % Sodium 1 % 0-08 11-06 Sodium 1 % 00:00: 00:00 00 :00 Diclofenac Diclofenac 2019-04- No QID Diclofenac Sodium 1 % Sodium 1 % 0-08 11-06 Sodium 1 % 00:00: 00:00 00 :00 Diclofenac Diclofenac 2019-04- No QID Diclofenac Sodium 1 % Sodium 1 % 0-08 11-06 Sodium 1 % 00:00: 00:00 00 :00 golimumab Yes 1{dose} Q30D Inject 1 M ethodi (SIMPONI 3-[address] ARIA IV) 23:33: the Hospita 35 shoulder, l thigh, or buttocks every 30 (thirty) days. Next dose 07/2018 sulfaSALAzi 2018- Yes 1000mg Q.5D Take 1,000 Methodi ne 3-[address] (AZULFIDINE 23:33: mouth 2 Hos derian ) 500 mg 35 (two) l tablet times a day. cyclobenzap 2018- Yes 10mg Take 10 mg Methodi rine 3-[address] (FLEXERIL) 23:33: as needed Ho spita 10 mg 35 for muscle l tablet spasms. irbesartan 2019-0 Yes 300mg QD Take 300 Me thodi (AVAPRO) 3-[address] 300 MG 23:33: mouth Hospita tablet 35 daily. l predniSONE 2019-0 Yes 5mg Take 5 mg Me thodi (DELTASONE) 3-[address] 5 mg tablet 23:33: as needed. Hospita 35 l carvedilol 2018-0 Yes 12.5mg Q.5D Take 12.5 Methodi (COREG) 3-[address] 12.5 MG 23:33: mouth 2 Hospita tablet 35 (two) l times a day with meals. montelukast Yes 10mg QD Take 10 mg Methodi (SINGULAIR) 3-[address] 10 mg 23:33: nightly. Hospita tablet 35 l levocetiriz 2018-0 Yes 5mg Take 5 mg M ethodi ine (XYZAL) 3-[address] 5 MG tablet 23:33: as needed. Hospita 35 l Lactobacill 2018-0 Yes 1{tbl} QD Take 1 Me thodi [...] tablet 23:33: daily. Hospit a 35 l irbesartan 0 Yes 300mg QD Take 300 Me thodi (AVAPRO) 3-[address] 300 MG 18:33: mouth Hospita tablet 35 daily. l predniSONE 2019-0 Yes 5mg Take 5 mg Me thodi (DELTASONE) 3-[address] 5 mg tablet 18:33: as needed. Hospita 35 l carvedilol 0 Yes 12.5mg Q.5D Take 12.5 Methodi (COREG) 3-[address] 12.5 MG 18:33: mouth 2 Hospita tablet 35 (two) l times a day with meals. montelukast 2019-0 Yes 10mg QD Take 10 mg Methodi (SINGULAIR) 3-[address] 10 mg 18:33: nightly. Hospita tablet 35 l levocetiriz 2019-0 Yes 5mg Take 5 mg M ethodi ine (XYZAL) 3-[address] 5 MG tablet 18:33: as needed. Hospita 35 l Lactobacill 2019-0 Yes 1{tbl} QD Take 1 Me thodi us 3-[address] acidophilus 18:33: mouth Hospi ta (PROBIOTIC 35 daily. l ORAL) vitamin E 2019-0 Yes 1{tbl} QD Take 1 Meth damaris acetate 3-[address] (VITAMIN E 18:33: mouth Hospit a ORAL) 35 daily. l ascorbate 0 Yes 1000mg QD Take 1,000 Methodi calcium 3-[address] (VITAMIN C 18:33: mouth Hospit a ORAL) 35 daily. l hydroCHLORO 2018-0 Yes 12.5mg QD Take 12.5 Methodi thiazide 3-[address] (HYDRODIURI 18:33: mouth Hospi ta L) 12.5 MG 35 daily. l tablet aspirin Yes 81mg QD Take 81 mg Meth damaris (ECOTRIN) 3-[address] 81 MG 18:33: daily. Hospita enteric 35 l coated tablet folic acid Yes 1mg QD Take 1 mg Me thodi (FOLVITE) 1 3-[address] MG tablet 18:33: daily. Hospit a 35 l golimumab Yes 1{dose} Q30D Inject 1 M ethodi (SIMPONI 3-[address] ARIA IV) 18:33: the Hospita 35 shoulder, l thigh, or buttocks every 30 (thirty) days. Next dose 07/2018 sulfaSALAzi 0 Yes 1000mg Q.5D Take 1,000 Methodi ne 3-[address] (AZULFIDINE 18:33: mouth 2 Hos derian ) 500 mg 35 (two) l tablet times a day. cyclobenzap 0 Yes 10mg Take 10 mg Methodi rine 3-[address] (FLEXERIL) 18:33: as needed Ho spita 10 mg 35 for muscle l tablet spasms. irbesartan 0 Yes 300mg QD Take 300 Me thodi (AVAPRO) 3-[address] 300 MG 18:33: mouth Hospita tablet 35 daily. l predniSONE 2019- Yes 5mg Take 5 mg Me thodi (DELTASONE) 3-[address] 5 mg tablet 18:33: as needed. Hospita 35 l carvedilol 2019-0 Yes 12.5mg Q.5D Take 12.5 Methodi (COREG) 3-[address] 12.5 MG 18:33: mouth 2 Hospita tablet 35 (two) l times a day with meals. montelukast Yes 10mg QD Take 10 mg Methodi (SINGULAIR) 3-[address] 10 mg 18:33: nightly. Hospita tablet 35 l levocetiriz 0 Yes 5mg Take 5 mg M ethodi ine (XYZAL) 3-[address] 5 MG tablet 18:33: as needed. Hospita 35 l Lactobacill 2018-0 Yes 1{tbl} QD Take 1 Me thodi us 3-[address] acidophilus 18:33: mouth Hospi ta (PROBIOTIC 35 daily. l ORAL) vitamin E 2018-0 Yes 1{tbl} QD Take 1 Meth damaris acetate 3-[address] (VITAMIN E 18:33: mouth Hospit a ORAL) 35 daily. l ascorbate 0 Yes 1000mg QD Take 1,000 Methodi calcium 3-[address] (VITAMIN C 18:33: mouth Hospit a ORAL) 35 daily. l hydroCHLORO 2018-0 Yes 12.5mg QD Take 12.5 Methodi thiazide 3-[address] (HYDRODIURI 18:33: mouth Hospi ta L) 12.5 MG 35 daily. l tablet aspirin 2018- Yes 81mg QD Take 81 mg Meth damaris (ECOTRIN) 3-[address] 81 MG 18:33: daily. Hospita enteric 35 l coated tablet folic acid 0 Yes 1mg QD Take 1 mg Me thodi (FOLVITE) 1 3-[address] MG tablet 18:33: daily. Hospit a 35 l golimumab 2018-0 Yes 1{dose} Q30D Inject 1 M ethodi (SIMPONI 3-[address] ARIA IV) 18:33: the Hospita 35 shoulder, l thigh, or buttocks every 30 (thirty) days. Next dose 07/2018 sulfaSALAzi 2019-0 Yes 1000mg Q.5D Take 1,000 Methodi ne 3-[address] (AZULFIDINE 18:33: mouth 2 Hos derian ) 500 mg 35 (two) l tablet times a day. cyclobenzap 2019-0 Yes 10mg Take 10 mg Methodi rine 3-[address] (FLEXERIL) 18:33: as needed Ho spita 10 mg 35 for muscle l tablet spasms. irbesartan 2019-0 Yes 300mg QD Take 300 Me thodi (AVAPRO) 3-[address] 300 MG 18:33: mouth Hospita tablet 35 daily. l predniSONE 2019-0 Yes 5mg Take 5 mg Me thodi (DELTASONE) 3-[address] 5 mg tablet 18:33: as needed. Hospita 35 l golimumab 2019-0 Yes 1{dose} Q30D Inject 1 M ethodi (SIMPONI 3-[address] ARIA IV) 18:33: the Hospita 35 shoulder, l thigh, or buttocks every 30 (thirty) days. Next dose 07/2018 sulfaSALAzi 2019-0 Yes 1000mg Q.5D Take 1,000 Methodi ne 3-[address] (AZULFIDINE 18:33: mouth 2 Hos derian ) 500 mg 35 (two) l tablet times a day. cyclobenzap 2019-0 Yes 10mg Take 10 mg Methodi rine 3-[address] (FLEXERIL) 18:33: as needed Ho spita 10 mg 35 for muscle l tablet spasms. irbesartan 2019-0 Yes 300mg QD Take 300 Me thodi (AVAPRO) 3-[address] 300 MG 18:33: mouth Hospita tablet 35 daily. l predniSONE 2019-0 Yes 5mg Take 5 mg Me thodi (DELTASONE) 3-[address] 5 mg tablet 18:33: as needed. Hospita 35 l carvedilol 2019-0 Yes 12.5mg Q.5D Take 12.5 Methodi (COREG) 3-[address] 12.5 MG 18:33: mouth 2 Hospita tablet 35 (two) l times a day with meals. montelukast 2019-0 Yes 10mg QD Take 10 mg Methodi (SINGULAIR) 3-[address] 10 mg 18:33: nightly. Hospita tablet 35 l levocetiriz 2019-0 Yes 5mg Take 5 mg M ethodi ine (XYZAL) 3-[address] 5 MG tablet 18:33: as needed. Hospita 35 l Lactobacill 2019-0 Yes 1{tbl} QD Take 1 Me thodi us 3-[address] acidophilus 18:33: mouth Hospi ta (PROBIOTIC 35 daily. l ORAL) carvedilol Yes 12.5mg Q.5D Take 12.5 Methodi (COREG) 3-[address] 12.5 MG 18:33: mouth 2 Hospita tablet 35 (two) l times a day with meals. vitamin E 2018- Yes 1{tbl} QD Take 1 Meth damaris acetate 3-[address] (VITAMIN E 18:33: mouth Hospit a ORAL) 35 daily. l ascorbate Yes 1000mg QD Take 1,000 Methodi calcium 3-[address] (VITAMIN C 18:33: mouth Hospit a ORAL) 35 daily. l hydroCHLORO Yes 12.5mg QD Take 12.5 Methodi thiazide 3-[address] (HYDRODIURI 18:33: mouth Hospi ta L) 12.5 MG 35 daily. l tablet aspirin Yes 81mg QD Take 81 mg Meth damaris (ECOTRIN) 3-[address] 81 MG 18:33: daily. Hospita enteric 35 l coated tablet folic acid Yes 1mg QD Take 1 mg Me thodi (FOLVITE) 1 3-[address] MG tablet 18:33: daily. Hospit a 35 l montelukast Yes 10mg QD Take 10 mg Methodi (SINGULAIR) 3-[address] 10 mg 18:33: nightly. Hospita tablet 35 l levocetiriz 2019-0 Yes 5mg Take 5 mg M ethodi ine (XYZAL) 3-[address] 5 MG tablet 18:33: as needed. Hospita 35 l Lactobacill 2019-0 Yes 1{tbl} QD Take 1 [facility] us 3-[address] acidophilus 18:33: mouth [facility] (PROBIOTIC 35 daily. l ORAL) vitamin E 2018-0 Yes 1{tbl} QD Take 1 Meth damaris acetate 3-[address] (VITAMIN E 18:33: mouth Hospit a ORAL) 35 daily. l ascorbate Yes 1000mg QD Take 1,000 [facility] calcium 3-[address] (VITAMIN C 18:33: mouth Hospit a ORAL) 35 daily. l hydroCHLORO 2018- Yes 12.5mg QD Take 12.5 [facility] thiazide 3-[address] (HYDRODIURI 18:33: mouth Hospi ta L) 12.5 MG 35 daily. l tablet aspirin Yes 81mg QD Take 81 mg Meth damaris (ECOTRIN) 3-[address] 81 MG 18:33: daily. Hospita enteric 35 l coated tablet folic acid Yes 1mg QD Take 1 mg [facility] (FOLVITE) 1 3-[address] MG tablet 18:33: daily. Hospit a 35 l golimumab Yes 1{dose} Q30D Inject 1 M ethodi (SIMPONI 3-[address] ARIA IV) 18:33: the Hospita 35 shoulder, l thigh, or buttocks every 30 (thirty) days. Next dose 07/2018 sulfaSALAzi Yes 1000mg Q.5D Take 1,000 [facility] ne 3-[address] (AZULFIDINE 18:33: mouth 2 Hos derian ) 500 mg 35 (two) l tablet times a day. cyclobenzap Yes 10mg Take 10 mg [facility] rine 3-[address] (FLEXERIL) 18:33: as needed [facility] spita 10 mg 35 for muscle l tablet spasms. Tramadol Tramadol Yes Maulik 1 tablet Common HCl HCl 01-08 [facility] as needed [facility] 00:00: - [facility] Carvedilol Carvedilol Yes Maulik as Common 01-08 [facility] directed [facility] 00:00: - [facility] Aspir-81 Aspir-81 2017-0 Yes Maulik 1 tablet Common 01-08 [facility] 00:00: - [facility] Xeljanz XR Xeljanz XR Yes Maulik 1 tablet Common 01-08 [facility] 00:00: - [facility] Celebrex Celebrex Yes Maulik 1 capsule Common 01-08 [facility] with food [facility] 00:00: - [facility] Lisinopril Lisinopril Yes Maulik 1 tablet Common 01-08 [facility] 00:: [facility] Gabapentin Gabapentin Yes Maulik 1 capsule Common 01-08 [facility] 00:00: [facility] PrednisoLON PrednisoLON Yes Maulik 1 tablet Common E E 01-08 [facility] with food Spirit 00:00: or milk in the [facility] PrednisoLON PrednisoLON No QD PrednisoLO E 5 MG E 5 MG 9-24 NE 5 MG 00:00: 00 Celebrex 50 Celebrex 50 No 1{capsu BID Celebrex MG MG 9-24 le_with 50 MG 00:00: _food} PrednisoLON PrednisoLON No QD PrednisoLO E 5 MG E 5 MG 9-24 NE 5 MG 00:00: 00 Tramadol Tramadol No 1{table QID Tramadol HCl 50 MG HCl 50 MG 9-24 t_as_ne HCl 50 MG 00:00: eded} 00 Carvedilol Carvedilol No Carvedilol 6.25 MG 6.25 MG 9-24 6.25 MG 00:00: 00 Celebrex 50 Celebrex 50 No 1{capsu BID Celebrex MG MG 9-24 le_with 50 MG 00:00: _food} Carvedilol Carvedilol No Carvedilol 6.25 MG 6.25 MG 9-24 6.25 MG 00:00: 00 Celebrex 50 Celebrex 50 No 1{capsu BID Celebrex MG MG 9-24 le_with 50 MG 00:00: _food} 00 PrednisoLON PrednisoLON No QD PrednisoLO E 5 MG E 5 MG 9-24 NE 5 MG 00:00: 00 Tramadol Tramadol No 1{table QID Tramadol HCl 50 MG HCl 50 MG 9-24 t_as_ne HCl 50 MG 00:00: eded} 00 Carvedilol Carvedilol No Carvedilol 6.25 MG 6.25 MG 9-24 6.25 MG 00:00: 00 PrednisoLON PrednisoLON No QD PrednisoLO E 5 MG E 5 MG 9-24 NE 5 MG 00:00: 00 Tramadol Tramadol No 1{table QID Tramadol HCl 50 MG HCl 50 MG 9-24 t_as_ne HCl 50 MG 00:00: eded} 00 Celebrex 50 Celebrex 50 No 1{capsu BID Celebrex MG MG 9-24 le_with 50 MG 00:00: _food} Carvedilol Carvedilol No Carvedilol 6.25 MG 6.25 MG 9-24 6.25 MG 00:00: 00 Tramadol Tramadol No 1{table QID Tramadol HCl 50 MG HCl 50 MG 9-24 t_as_ne HCl 50 MG 00:00: eded} 00 PrednisoLON PrednisoLON No QD PrednisoLO E 5 MG E 5 MG 9-24 NE 5 MG 00:00: 00 Celebrex 50 Celebrex 50 No 1{capsu BID Celebrex MG MG 9-24 le_with 50 MG 00:00: _food} Carvedilol Carvedilol No Carvedilol 6.25 MG 6.25 MG 9-24 6.25 MG 00:00: 00 Tramadol Tramadol No 1{table QID Tramadol HCl 50 MG HCl 50 MG 9-24 t_as_ne HCl 50 MG 00:00: eded} 00 ergocalcife Yes Take by Uni vers rol, 8- mouth. ity of vitamin D2, 06:57: [place] (VITAMIN D 55 Medical ORAL) Branch Lactobacill Yes Take by Uni vers us 8-07 mouth. ity of acidophilus 06:57: [place] (PROBIOTIC 55 Medical ORAL) Branch METHOTREXAT Yes Take by Uni vers E ORAL 8 mouth. ity of 06:57: [place] [address] Medical Branch vitamin E Yes Take by Unive rs acetate 8- mouth. ity of (VITAMIN E 06:57: [place] ORAL) 55 Medical Branch ergocalcife Yes Take by Uni vers rol, 8-07 mouth. ity of vitamin D2, 06:57: [place] (VITAMIN D 55 Medical ORAL) Branch Lactobacill Yes Take by Uni vers us 8-07 mouth. ity of acidophilus 06:57: [place] (PROBIOTIC 55 Medical ORAL) Branch METHOTREXAT Yes Take by Uni vers E ORAL 8-07 mouth. ity of 06:57: [place] [address] Medical Branch vitamin E Yes Take by Unive rs acetate 8-07 mouth. ity of (VITAMIN E 06:57: [place] ORAL) 55 Medical Branch ergocalcife Yes Take by Uni vers rol, 8-07 mouth. ity of vitamin D2, 06:57: [place] (VITAMIN D 55 Medical ORAL) Branch Lactobacill Yes Take by Uni vers us 8-07 mouth. ity of acidophilus 06:57: [place] (PROBIOTIC 55 Medical ORAL) Branch METHOTREXAT Yes Take by Uni vers E ORAL 8-07 mouth. ity of 06:57: [place] [address] Medical Branch vitamin E Yes Take by Unive rs acetate 8-07 mouth. ity of (VITAMIN E 06:57: [place] ORAL) Medical Branch ergocalcife Yes Take by Uni vers rol, 8-07 mouth. ity of vitamin D2, 06:57: [place] (VITAMIN D 55 Medical ORAL) Branch Lactobacill Yes Take by Uni vers us 8-07 mouth. ity of acidophilus 06:57: [place] (PROBIOTIC 55 Medical ORAL) Branch METHOTREXAT Yes Take by Uni vers E ORAL 8-07 mouth. ity of 06:57: [place] [address] Medical Branch vitamin E Yes Take by Unive rs acetate 8-07 mouth. ity of (VITAMIN E 06:57: [place] ORAL) Medical Branch ergocalcife Yes Take by Uni vers rol, 8-07 mouth. ity of vitamin D2, 06:57: [place] (VITAMIN D 55 Medical ORAL) Branch Lactobacill Yes Take by Uni vers us 8-07 mouth. ity of acidophilus 06:57: [place] (PROBIOTIC 55 Medical ORAL) Branch METHOTREXAT Yes Take by Uni vers E ORAL 8-07 mouth. ity of 06:57: [place] [address] Medical Branch vitamin E Yes Take by Unive rs acetate 8-07 mouth. ity of (VITAMIN E 06:57: [place] ORAL) 55 Medical Branch ergocalcife Yes Take by Uni vers rol, 8-07 mouth. ity of vitamin D2, 06:57: [place] (VITAMIN D 55 Medical ORAL) Branch Lactobacill 0 Yes Take by Uni vers us 8-07 mouth. ity of acidophilus 06:57: [place] (PROBIOTIC 55 Medical ORAL) Branch METHOTREXAT 0 Yes Take by Uni vers E ORAL 8-07 mouth. ity of 06:57: [place] [address] Medical Branch vitamin E Yes Take by Unive rs acetate 8-07 mouth. ity of (VITAMIN E 06:57: [place] ORAL) 55 Medical Branch ergocalcife Yes Take by Uni vers rol, 8-07 mouth. ity of vitamin D2, 06:57: [place] (VITAMIN D 55 Medical ORAL) Branch Lactobacill Yes Take by Uni vers us 8-07 mouth. ity of acidophilus 06:57: [place] (PROBIOTIC 55 Medical ORAL) Branch METHOTREXAT Yes Take by Uni vers E ORAL 8-07 mouth. ity of 06:57: [place] [address] Medical Branch vitamin E Yes Take by Unive rs acetate 8-07 mouth. ity of (VITAMIN E 06:57: [place] ORAL) 55 Medical Branch tofacitinib Yes Take by Uni vers citrate 8-07 mouth. ity of (XELJANZ 06:57: [place] ORAL) 54 Medical Branch montelukast Yes Take by Uni vers sodium 8-07 mouth. ity of (SINGULAIR 06:57: [place] ORAL) 54 Medical Branch LISINOPRIL Yes Take by Univ ers ORAL 8-07 mouth. ity of 06:57: [place] [address] Medical Branch CELECOXIB 0 Yes Take by Unive rs ORAL 8-07 mouth. ity of 06:57: [place] [address] Medical Branch tofacitinib Yes Take by Uni vers citrate 8-07 mouth. ity of (XELJANZ 06:57: [place] ORAL) 54 Medical Branch tramadol 2018-0 Yes Take by Univer s HCl 8-07 mouth. ity of (TRAMADOL 06:57: [place] ORAL) 54 Medical Branch montelukast 0 Yes Take by Uni vers sodium 8-07 mouth. ity of (SINGULAIR 06:57: [place] ORAL) 54 Medical Branch tramadol 2018-0 Yes Take by Univer s HCl 8-07 mouth. ity of (TRAMADOL 06:57: [place] ORAL) Medical Branch CARVEDILOL 2018- Yes Take by Univ ers ORAL 8-07 mouth. ity of 06:57: [address] Branch aspirin 81 Yes 81mg Take 81 mg U nivers mg chewable 8-07 by mouth ity of tablet 06:57: daily. [address] FOLIC ACID 2017-0 Yes Take by Univ ers ORAL 8-07 mouth. ity of 06:57: [place] [address] Medical [place] ascorbate 0 Yes Take by Unive rs calcium 8-07 mouth. ity of (VITAMIN C 06:57: [place] ORAL) Medical Branch CARVEDILOL Yes Take by Univ ers ORAL 8-07 mouth. ity of 06:57: [place] [address] Medical Branch LISINOPRIL Yes Take by Univ ers ORAL 8-07 mouth. ity of 06:57: [address] CELECOXIB Yes Take by Unive rs ORAL 8-07 mouth. ity of 06:57: [place] [address] Medical Branch tofacitinib Yes Take by Uni vers citrate 8-07 mouth. ity of (XELJANZ 06:57: [place] ORAL) Medical Branch montelukast Yes Take by Uni vers sodium 8-07 mouth. ity of (SINGULAIR 06:57: [place] ORAL) Medical Branch aspirin 81 Yes 81mg Take 81 mg U nivers mg chewable 8-07 by mouth ity of tablet 06:57: daily. [address] tramadol Yes Take by Univer s HCl 8-07 mouth. ity of (TRAMADOL 06:57: [place] ORAL) Medical Branch CARVEDILOL Yes Take by Univ ers ORAL 8-07 mouth. ity of 06:57: [address] aspirin 81 Yes 81mg Take 81 mg U nivers mg chewable 8-07 by mouth ity of tablet 06:57: daily. [address] FOLIC ACID 2018-0 Yes Take by Univ ers ORAL 8-07 mouth. ity of 06:57: [address] ascorbate 2017-0 Yes Take by Unive rs calcium 8-07 mouth. ity of (VITAMIN C 06:57: [place] ORAL) [address] [place] [address] FOLIC ACID 2017-0 Yes Take by Univ ers ORAL 8-07 mouth. ity of 06:57: [place] [address] Medical Branch ascorbate 2018-0 Yes Take by Unive rs calcium 8-07 mouth. ity of (VITAMIN C 06:57: [place] ORAL) Medical Branch LISINOPRIL [address]80 Yes Take by Univ ers ORAL 8-07 mouth. ity of 06:57: [address] Branch CELECOXIB Yes Take by Unive rs ORAL 8-07 mouth. ity of 06:57: [place] [address] Medical Branch tofacitinib Yes Take by Uni vers citrate 8-07 mouth. ity of (XELJANZ 06:57: [place] ORAL) Medical Branch montelukast Yes Take by Uni vers sodium 8-07 mouth. ity of (SINGULAIR 06:57: [place] ORAL) Medical Branch tramadol Yes Take by Univer s HCl 8-07 mouth. ity of (TRAMADOL 06:57: [place] ORAL) Medical Branch CARVEDILOL Yes Take by YR.MRKT ers ORAL 8-07 mouth. ity of 06:57: [address] aspirin 81 Yes 81mg Take 81 mg U nivers mg chewable 807 by mouth ity of tablet 06:57: daily. [place] [address] Medical [place] FOLIC ACID Yes Take by YR.MRKT ers ORAL 8-07 mouth. ity of 06:57: [address] ascorbate Yes Take by Unive rs calcium 8-07 mouth. ity of (VITAMIN C 06:57: [place] ORAL) Medical Branch LISINOPRIL Yes Take by YR.MRKT ers ORAL 8-07 mouth. ity of 06:57: [place] [address] Medical Branch CELECOXIB Yes Take by Unive rs ORAL 8-07 mouth. ity of 06:57: [place] [address] Medical Branch tofacitinib Yes Take by Uni vers citrate 8-07 mouth. ity of (XELJANZ 06:57: [place] ORAL) Medical Branch montelukast 0 Yes Take by Uni vers sodium 8-07 mouth. ity of (SINGULAIR 06:57: [place] ORAL) Medical Branch tramadol Yes Take by Univer s HCl 8-07 mouth. ity of (TRAMADOL 06:57: [place] ORAL) Medical Branch CARVEDILOL 2018-0 Yes Take by Univ ers ORAL 8-07 mouth. ity of 06:57: [address] aspirin 81 [address] Yes 81mg Take 81 mg U nivers mg chewable 8-07 by mouth ity of tablet 06:57: daily. [address] Branch FOLIC ACID [address] Yes Take by Univ ers ORAL 8-07 mouth. ity of 06:57: [address] ascorbate 2018-0 Yes Take by Unive rs calcium 8-07 mouth. ity of (VITAMIN C 06:57: [place] ORAL) [address] [place] [address] Branch LISINOPRIL 0 Yes Take by Univ ers ORAL 8-07 mouth. ity of 06:57: [place] [address] Medical Branch CELECOXIB 0 Yes Take by Unive rs ORAL 8-07 mouth. ity of 06:57: [place] [address] Medical Branch tofacitinib Yes Take by Uni vers citrate 8-07 mouth. ity of (XELJANZ 06:57: [place] ORAL) [address] [place] [address] montelukast Yes Take by Uni vers sodium 8-07 mouth. ity of (SINGULAIR 06:57: [place] ORAL) [address] [place] [address] Branch tramadol Yes Take by Univer s HCl 8-07 mouth. ity of (TRAMADOL 06:57: [place] ORAL) Medical Branch CARVEDILOL Yes Take by Univ ers ORAL 8-07 mouth. ity of 06:57: [address] aspirin 81 0 Yes 81mg Take 81 mg U nivers mg chewable 8-07 by mouth ity of tablet 06:57: daily. [address] FOLIC ACID [address] Yes Take by Univ ers ORAL 8-07 mouth. ity of 06:57: [address] ascorbate [address] Yes Take by Unive rs calcium 8-07 mouth. ity of (VITAMIN C 06:57: [place] ORAL) Medical [place] LISINOPRIL 20180 Yes Take by Univ ers ORAL 8-07 mouth. ity of 06:57: [place] [address] Medical [place] CELECOXIB 0 Yes Take by Unive rs ORAL 8-07 mouth. ity of 06:57: [address] LISINOPRIL [address] Yes Take by Univ ers ORAL 8-07 mouth. ity of 06:57: [address] CELECOXIB 0 Yes Take by Unive rs ORAL 8-07 mouth. ity of 06:57: [place] [address] Medical Branch tofacitinib Yes Take by Uni vers citrate 8-07 mouth. ity of (XELJANZ 06:57: [place] ORAL) 54 Medical Branch montelukast Yes Take by Uni vers sodium 8-07 mouth. ity of (SINGULAIR 06:57: [place] ORAL) 54 Medical Branch tramadol Yes Take by Univer s HCl 8-07 mouth. ity of (TRAMADOL 06:57: [place] ORAL) 54 Medical Branch CARVEDILOL Yes Take by Univ ers ORAL 8-07 mouth. ity of 06:57: [place] [address] Medical Branch aspirin 81 Yes 81mg Take 81 mg U nivers mg chewable 8 by mouth ity of tablet 06:57: daily. [place] [address] Medical Branch FOLIC ACID Yes Take by Univ ers ORAL 8-07 mouth. ity of 06:57: [place] [address] Medical Branch ascorbate Yes Take by Unive rs calcium 8-07 mouth. ity of (VITAMIN C 06:57: [place] ORAL) 54 Medical Branch vitamin E Yes Take by Unive rs acetate 8-07 mouth. ity of (VITAMIN E 01:57: [place] ORAL) Medical Branch ergocalcife Yes Take by Uni vers rol, 8-07 mouth. ity of vitamin D2, 01:57: [place] (VITAMIN D 55 Medical ORAL) Branch Lactobacill Yes Take by Uni vers us 8-07 mouth. ity of acidophilus 01:57: [place] (PROBIOTIC 55 Medical ORAL) Branch METHOTREXAT Yes Take by Uni vers E ORAL 8-07 mouth. ity of 01:57: [place] [address] Medical Branch LISINOPRIL Yes Take by Univ ers ORAL 8-07 mouth. ity of 01:57: [place] [address] Medical Branch CELECOXIB Yes Take by Unive rs ORAL 8-07 mouth. ity of 01:57: [place] [address] Medical Branch tofacitinib Yes Take by Uni vers citrate 8-07 mouth. ity of (XELJANZ 01:57: [place] ORAL) 54 Medical Branch montelukast Yes Take by Uni vers sodium 8-07 mouth. ity of (SINGULAIR 01:57: [place] ORAL) 54 Medical Branch tramadol Yes Take by Univer s HCl 8-07 mouth. ity of (TRAMADOL 01:57: [place] ORAL) [address] [place] [address] CARVEDILOL Yes Take by [facility] ers ORAL 8-07 mouth. ity of 01:57: [address] aspirin 81 2017- Yes 81mg Take 81 mg U nivers mg chewable 807 by mouth ity of tablet 01:57: daily. [address] FOLIC ACID 0 Yes Take by [facility] ers ORAL 8-07 mouth. ity of 01:57: [address] ascorbate Yes Take by [facility] rs calcium 8-07 mouth. ity of (VITAMIN C 01:57: [place] ORAL) [address] [place] [address] butalbital- Yes 1{tbl} Take 1 Un thais acetaminoph 8-07 tablet by ity of en-caff 00:00: mouth [place] 50-325-40 00 every 6 Medical mg tablet (six) Branch hours as needed for Headache (Headache) . butalbital- Yes 1{tbl} Take 1 Un thais acetaminoph 8-07 tablet by ity of en-caff 00:00: mouth [place] 50-325-40 00 every 6 Medical mg tablet (six) Branch hours as needed for Headache (Headache) . butalbital- Yes 1{tbl} Take 1 Un thais acetaminoph 8-07 tablet by ity of en-caff 00:00: mouth [place] 50-325-40 00 every 6 Medical mg tablet (six) Branch hours as needed for Headache (Headache) . butalbital- Yes 1{tbl} Take 1 Un thais acetaminoph 8-07 tablet by ity of en-caff 00:00: mouth [place] 50-325-40 00 every 6 Medical mg tablet (six) Branch hours as needed for Headache (Headache) . butalbital- 0 Yes 1{tbl} Take 1 Un thais acetaminoph 8-07 tablet by ity of en-caff 00:00: mouth [place] 50-325-40 00 every 6 Medical mg tablet (six) Branch hours as needed for Headache (Headache) . butalbital- Yes 1{tbl} Take 1 Un thais acetaminoph 8-07 tablet by ity of en-caff 00:00: mouth [place] 50-325-40 00 every 6 Medical mg tablet (six) Branch hours as needed for Headache (Headache) . butalbital- Yes 1{tbl} Take 1 Un thais acetaminoph 8-07 tablet by ity of en-caff 00:00: mouth [place] 50-325-40 00 every 6 Medical mg tablet (six) Branch hours as needed for Headache (Headache) . butalbital Yes 1{tbl} Take 1 Un thais acetaminoph 8-07 tablet by ity of en-caff 00:00: mouth [place] 50-325-40 00 every 6 Medical mg tablet (six) Branch hours as needed for Headache (Headache) . Montelukast Montelukast Yes Maulik not Common Sodium Sodium [facility] defined [facility] Celecoxib Celecoxib Yes Maulik not Co mmon [facility] defined [facility] cyclobenzap cyclobenzap Yes Maulik not Common rine rine [facility] defined [facility] Irbesartan Irbesartan Yes Maulik not Common [facility] defined [facility] Sulfasalazi Sulfasalazi Yes Maulik not Common ne ne [facility] defined [facility] Rinvoq Rinvoq Yes Maulik not Common [facility] defined [facility] Levocetiriz Levocetiriz Yes Maulik not Common ine-Loratad ine-Loratad [facility] defined [facility] ine ine [facility] Folic Acid Folic Acid Yes Maulik not Common [facility] defined [facility] Potassium Potassium No Potassium Chloride ER Chloride ER Chloride ER Folic Acid Folic Acid No Folic Acid Kevzara Kevzara No Kevzara Levocetiriz Levocetiriz No Levocetiri ine ine zine Dihydrochlo Dihydrochlo Dihydrochl ride ride oride Atorvastati Atorvastati No Atorvastat n Calcium n Calcium in Calcium Cyclobenzap Cyclobenzap No Cyclobenza rine HCl rine HCl therese HCl cyclobenzap cyclobenzap No cyclobenza rine rine therese Sulfasalazi Sulfasalazi No Sulfasalaz ne ne ine Amoxicillin Amoxicillin No Amoxicilli n Irbesartan Irbesartan No Irbesartan Levocetiriz Levocetiriz No Levocetiri ine-Loratad ine-Loratad jemne-Lorat ine ine adine PredniSONE PredniSONE No PredniSONE Meloxicam Meloxicam No Meloxicam Azelastine- Azelastine- No Azelastine Fluticasone Fluticasone -Fluticaso ne Montelukast Montelukast No Montelukas Sodium Sodium t Sodium Ibuprofen Ibuprofen No Ibuprofen Amoxicillin Amoxicillin No Amoxicilli n Folic Acid Folic Acid No Folic Acid Levocetiriz Levocetiriz No Levocetiri ine ine zine Dihydrochlo Dihydrochlo Dihydrochl ride ride oride Rinvoq Rinvoq No Rinvoq cyclobenzap cyclobenzap No cyclobenza rine rine therese Potassium Potassium No Potassium Chloride ER Chloride ER Chloride ER Levocetiriz Levocetiriz No Levocetiri ine-Loratad ine-Loratad jemne-Lorat ine ine adine Dymista Dymista No Dymista Azelastine- Azelastine- No Azelastine Fluticasone Fluticasone -Fluticaso ne Irbesartan Irbesartan No Irbesartan Meloxicam Meloxicam No Meloxicam Kevzara Kevzara No Kevzara Atorvastati Atorvastati No Atorvastat n Calcium n Calcium in Calcium PredniSONE PredniSONE No PredniSONE Montelukast Montelukast No Montelukas Sodium Sodium t Sodium Sulfasalazi Sulfasalazi No Sulfasalaz ne ne ine Cyclobenzap Cyclobenzap No Cyclobenza rine HCl rine HCl therese HCl Rinvoq Rinvoq No Rinvoq Irbesartan Irbesartan No Irbesartan Levocetiriz Levocetiriz No Levocetiri ine-Loratad ine-Loratad jemne-Lorat ine ine adine Folic Acid Folic Acid No Folic Acid cyclobenzap cyclobenzap No cyclobenza rine rine therese Sulfasalazi Sulfasalazi No Sulfasalaz ne ne ine Montelukast Montelukast No Montelukas Sodium Sodium t Sodium Azelastine- Azelastine- No Azelastine Fluticasone Fluticasone -Fluticaso ne Montelukast Montelukast No Montelukas Sodium Sodium t Sodium Levocetiriz Levocetiriz No Levocetiri ine-Loratad ine-Loratad zine-Lorat ine ine adine Atorvastati Atorvastati No Atorvastat n Calcium n Calcium in Calcium Kevzara Kevzara No Kevzara Rinvoq Rinvoq No Rinvoq PredniSONE PredniSONE No PredniSONE Levocetiriz Levocetiriz No Levocetiri ine ine zine Dihydrochlo Dihydrochlo Dihydrochl ride ride oride Meloxicam Meloxicam No Meloxicam Ibuprofen Ibuprofen No Ibuprofen Amoxicillin Amoxicillin No Amoxicilli n Irbesartan Irbesartan No Irbesartan Dymista Dymista No Dymista Folic Acid Folic Acid No Folic Acid Potassium Potassium No Potassium Chloride ER Chloride ER Chloride ER Sulfasalazi Sulfasalazi No Sulfasalaz ne ne ine Cyclobenzap Cyclobenzap No Cyclobenza rine HCl rine HCl therese HCl cyclobenzap cyclobenzap No cyclobenza rine rine therese Dymista Dymista No Dymista Ibuprofen Ibuprofen No Ibuprofen Rinvoq Rinvoq No Rinvoq Potassium Potassium No Potassium Chloride ER Chloride ER Chloride ER Folic Acid Folic Acid No Folic Acid Kevzara Kevzara No Kevzara Levocetiriz Levocetiriz No Levocetiri ine ine zine Dihydrochlo Dihydrochlo Dihydrochl ride ride oride Atorvastati Atorvastati No Atorvastat n Calcium n Calcium in Calcium Cyclobenzap Cyclobenzap No Cyclobenza rine HCl rine HCl therese HCl cyclobenzap cyclobenzap No cyclobenza rine rine therese Sulfasalazi Sulfasalazi No Sulfasalaz ne ne ine Amoxicillin Amoxicillin No Amoxicilli n Irbesartan Irbesartan No Irbesartan Levocetiriz Levocetiriz No Levocetiri ine-Loratad ine-Loratad zine-Lorat ine ine adine PredniSONE PredniSONE No PredniSONE Meloxicam Meloxicam No Meloxicam Azelastine- Azelastine- No Azelastine Fluticasone Fluticasone -Fluticaso ne Montelukast Montelukast No Montelukas Sodium Sodium t Sodium Dymista Dymista No Dymista Ibuprofen Ibuprofen No Ibuprofen Rinvoq Rinvoq No Rinvoq Immunizations Ordered Filled Immunization Date Status Comments [facility] e Immunization Name Name SARS-COV-2 COVID-19 2020-06-13 Completed Unive rsity of PFIZER VACCINE 00:00:00 [facility] SARS-COV-2 COVID-19 2020-06-13 Completed Unive rsity of PFIZER VACCINE 00:00:00 [facility] SARS-COV-2 COVID-19 2020-06-13 Completed Unive rsity of PFIZER VACCINE 00:00:00 [facility] SARS-COV-2 COVID-19 2020-06-13 Completed Unive rsity of PFIZER VACCINE 00:00:00 [facility] SARS-COV-2 COVID-19 2020-06-13 Completed Unive rsity of PFIZER VACCINE 00:00:00 [facility] SARS-COV-2 COVID-19 2020-06-13 Completed Unive rsity of PFIZER VACCINE 00:00:00 [facility] SARS-COV-2 COVID-19 2020-06-13 Completed Unive rsity of PFIZER VACCINE 00:00:00 [facility] SARS-COV-2 COVID-19 2020-06-13 Completed Unive rsity of PFIZER VACCINE 00:00:00 [facility] SARS-COV-2 COVID-19 2020-05-16 Completed Unive rsity of PFIZER VACCINE 00:00:00 [facility] SARS-COV-2 COVID-19 2020-05-16 Completed Unive rsity of PFIZER VACCINE 00:00:00 [facility] SARS-COV-2 COVID-19 2020-05-16 Completed Unive rsity of PFIZER VACCINE 00:00:00 [facility] SARS-COV-2 COVID-19 2020-05-16 Completed Unive rsity of PFIZER VACCINE 00:00:00 [facility] SARS-COV-2 COVID-19 2020-05-16 Completed Unive rsity of PFIZER VACCINE 00:00:00 [facility] SARS-COV-2 COVID-19 2020-05-16 Completed Unive rsity of PFIZER VACCINE 00:00:00 [facility] SARS-COV-2 COVID-19 2020-05-16 Completed Unive rsity of PFIZER VACCINE 00:00:00 [facility] SARS-COV-2 COVID-19 2020-05-16 Completed Unive rsity of PFIZER VACCINE 00:00:00 [facility] Bupivicaine [place] Bupivicaine [place] 2019-09-17 [facility] - 11:05:00 [facility] Kenalog Kenalog 2019-09-17 Completed [facility] - (Triamcinolone) (Triamcinolone) 11:05:00 [facility] Bupivicaine [place] Bupivicaine [place] 2019-09-17 Completed [facility] - 11:05:00 [facility] Kenalog Kenalog 2019-09-17 Completed [facility] - (Triamcinolone) (Triamcinolone) 11:05:00 [facility] Bupivicaine [place] Bupivicaine [place] 2019-09-17 Completed [facility] - 11:05:00 [facility] Kenalog Kenalog 2019-09-17 Completed [facility] - (Triamcinolone) (Triamcinolone) 11:05:00 [facility] Bupivicaine [place] Bupivicaine [place] 2019-09-17 Completed [facility] - 11:05:00 [facility] Kenalog Kenalog 2019-09-17 Completed [facility] - (Triamcinolone) (Triamcinolone) 11:05:00 [facility] Vital Signs Vital Name Observation Time Observation Value Comments Source Body height 2022-03-24 16:18:00 170.2 cm [facility] Body weight 2022-03-24 16:18:00 [facility]183 [facility] BMI 2022-03-24 16:18:00 29.76 kg/m2 [facility] Systolic blood 2020-12-12 17:26:00 99 mm[Hg] Univer sity of pressure [facility] Diastolic blood 2020-12-12 17:26:00 51 mm[Hg] Unive rsity of pressure [facility] Heart rate 2020-12-12 17:26:00 83 /min [facility] Body temperature 2020-12-12 17:26:00 36.72 [facility] Res[facility] rate 2020-12-12 17:26:00 20 /min [facility] Oxygen saturation in 2020-12-12 17:26:00 96 /min [facility] Arterial blood by [facility] Pulse oximetry Branch Body height 2020-12-12 16:43:00 170.2 cm [facility] Body weight 2020-12-12 16:43:00 81.647 kg Universi [facility] BMI 2020-12-12 16:43:00 28.19 kg/m2 [facility] height 2020-01-23 14:00:00 67.5 [in_i] [facility] weight 2020-01-23 14:00:00 187 [lb_av] [facility] temperature 2020-01-23 14:00:00 97.3 [degF] [facility] bmi 2020-01-23 14:00:00 28.85 kg/m2 [facility] blood pressure 2020-01-23 14:00:00 132 mm[Hg] [facility] blood pressure 2020-01-23 14:00:00 80 mm[Hg] [facility] height 2019-12-31 13:30:00 67.5 [in_i] [facility] weight 2019-12-31 13:30:00 187.2 [lb_av] [facility] temperature 2019-12-31 13:30:00 97.5 [degF] [facility] bmi 2019-12-31 13:30:00 28.88 kg/m2 [facility] blood pressure 2019-12-31 13:30:00 165 mm[Hg] [facility] blood pressure 2019-12-31 13:30:00 100 mm[Hg] [facility] Body height 2022-06-28 16:06:00 171.5 cm [facility] Body weight 2022-06-28 16:06:00 84.369 kg [facility] BMI 2022-06-28 16:06:00 28.70 kg/m2 [facility] Procedures Procedure Date / Time Performing Clinician Source Performed XR LUMBAR SPINE COMPLETE 2022-06-28 17:42:00 Jon Foster [facility] W BENDING MRI LUMBAR SPINE WO 2022-06-28 17:05:00 Jon Foster [facility] CONTRAST MA ARTHROCENTESIS ASP/INJ 2022-03-24 16:00:00 Ernie Schro[place] [facility] MAJ[place] JOINT/BURSA W/OUT US MA ARTHROCENTESIS 2021-09-02 18:54:43 TahiraAndresgigi [place] [facility] ASPIR&/INJ MAJOR JT/BURSA W/O US MA ARTHROCENTESIS 2021-08-23 18:01:03 TahiraGeraldo [place] [facility] ASPIR&/INJ MAJOR JT/BURSA W/O US MA ARTHROCENTESIS 2021-08-16 19:11:56 [facility]/INJ MAJOR JT/BURSA W/O US MA ARTHROCENTESIS 2021-08-05 20:05:51 TahiraGeraldo [place] [facility] ASPIR&/INJ MAJOR JT/BURSA W/O US MA ARTHROCENTESIS 2021-06-10 21:12:46 [facility] ASPIR&/INJ MAJOR JT/BURSA W/O US [id number] CONSENT 2020-12-18 05:01:00 Doctor Unassigned, [facility] CONSENT/REFUSAL FOR 2020-12-12 05:01:00 Doctor Unassigned, [facility] DIAGNOSIS AND TREATMENT [facility] COVID-19 (MOLECULAR 2020-12-08 20:40:00 Acosta Lam [facility] TESTING Medical Branch NUCLEIC ACID AMPLIFICATION) LAB ONLY COVID 2020-12-08 20:40:00 Acosta Lam [facility] INTERPRETATION Medical Branch MRI LUMBAR SPINE WO 2020-10-17 19:12:39 [facility] [place] [facility] LUMBAR SPINE WO 2020-10-17 19:12:39 [facility] [facility] Plan of Care Planned Activity Planned Date Details Comments Source Future Scheduled 2022-09-22 [facility] Test 16:38:12 malignant neoplasm of colon (procedure) [code = 739763519] Future Scheduled 2022-09-22 Screening for [facility] Test 16:38:12 malignant neoplasm of colon (procedure) [code = 516800852] Future Scheduled 2022-09-22 Screening for [facility] Test 16:38:12 malignant neoplasm of colon (procedure) [code = 215875926] Future Scheduled 2022-09-22 Hepatitis C screening [facility] Test 16:38:12 (procedure) [code = 619400895] Future Scheduled 2022-09-22 BREAST CANCER [facility] Test 16:38:12 SCREENING [code = BREAST CANCER SCREENING] Future Scheduled 2022-09-22 Screening for [facility] Test 16:38:12 malignant neoplasm of colon (procedure) [code = 798793198] Future Scheduled 2022-09-22 Screening for [facility] Test 16:38:12 malignant neoplasm of colon (procedure) [code = 667028153] Future Scheduled 2022-09-22 SHINGLES VACCINES (1 Met [facility] Test 16:38:12 of 2) [code = SHINGLES VACCINES (1 of 2)] Future Scheduled 2022-09-22 65+ PNEUMOCOCCAL [facility] Test 16:38:12 VACCINE (1 - PCV) [code = 65+ PNEUMOCOCCAL VACCINE (1 - PCV)] Future Scheduled 2022-09-22 COVID-19 VACCINE (5 - [facility] Test 16:38:12 Pfizer series) [code = COVID-19 VACCINE (5 - Pfizer series)] Future Scheduled 2022-09-22 INFLUENZA VACCINE Method [facility] Test 16:38:12 [code = INFLUENZA VACCINE] Future Scheduled 2022-03-15 65+ [facility]OCOCCAL [facility] Test 08:45:59 VACCINE (1 - PCV) [code = 65+ PNEUMOCOCCAL VACCINE (1 - PCV)] Future Scheduled 2022-03-15 INFLUENZA VACCINE Method [facility] Test 08:45:59 [code = INFLUENZA VACCINE] Future Scheduled 2022-03-15 HEPATITIS B VACCINES Met [facility] Test 08:45:59 (1 of 3 - 3-dose series) [code = HEPATITIS B VACCINES (1 of 3 - 3-dose series)] Future Scheduled 2022-03-15 COVID-19 VACCINE (#1) [facility] Test 08:45:59 [code = COVID-19 VACCINE (#1)] Future Scheduled 2022-03-15 Hepatitis C screening [facility] Test 08:45:59 (procedure) [code = 881351002] Future Scheduled 2022-03-15 BREAST CANCER [facility] Test 08:45:59 SCREENING [code = BREAST CANCER SCREENING] Future Scheduled 2022-03-15 COLONOSCOPY SCREENING [facility] Hospital Test 08:45:59 [code = COLONOSCOPY SCREENING] Future Scheduled 2022-03-15 SHINGLES VACCINES (1 [facility] Test 08:45:59 of 2) [code = SHINGLES VACCINES (1 of 2)] Future Scheduled 2021-05-18 COVID-19 VACCINE (1) [facility] Test 16:38:44 [code = COVID-19 VACCINE (1)] Future Scheduled 2021-05-18 Hepatitis C screening [facility] Test 16:38:44 (procedure) [code = 148650715] Future Scheduled 2021-05-18 BREAST CANCER [facility] Test 16:38:44 SCREENING [code = BREAST CANCER SCREENING] Future Scheduled 2021-05-18 COLONOSCOPY SCREENING [facility] Test 16:38:44 [code = COLONOSCOPY SCREENING] Future Scheduled 2021-05-18 SHINGLES VACCINES (#1) [facility] Hospital Test 16:38:44 [code = SHINGLES VACCINES (#1)] Future Scheduled 2021-05-18 65+ [facility]OCOCCAL [facility] Test 16:38:44 VACCINE (1 of 1 - PPSV23) [code = 65+ PNEUMOCOCCAL VACCINE (1 of 1 - PPSV23)] Future Scheduled 2021-05-18 INFLUENZA VACCINE Method [facility] Hospital Test 16:38:44 [code = INFLUENZA VACCINE] Future Scheduled 2021-05-18 COVID-19 VACCINE (1) [facility] Test 16:38:44 [code = COVID-19 VACCINE (1)] Future Scheduled 2021-05-18 Hepatitis C screening [facility] Test 16:38:44 (procedure) [code = 710062833] Future Scheduled 2021-05-18 BREAST CANCER [facility] Test 16:38:44 SCREENING [code = BREAST CANCER SCREENING] Future Scheduled 2021-05-18 COLONOSCOPY SCREENING [facility] Test 16:38:44 [code = COLONOSCOPY SCREENING] Future Scheduled 2021-05-18 SHINGLES VACCINES (#1) [facility] 16:38:44 [code = SHINGLES VACCINES (#1)] Future Scheduled 2021-05-18 65+ [facility]OCOCC[facility] Test 16:38:44 VACCINE (1 of 1 - PPSV23) [code = 65+ PNEUMOCOCCAL VACCINE (1 of 1 - PPSV23)] Future Scheduled 2021-05-18 INFLUENZA VACCINE [facility] Test 16:38:44 [code = INFLUENZA VACCINE] Future Scheduled COVID-19 VACCINE (1) [facility] Test [code = COVID-19 VACCINE (1)] Future Scheduled Hepatitis C screening [facility] Hospital Test (procedure) [code = 194239445] Future Scheduled [facility] Test SCREENING [code = BREAST CANCER SCREENING] Future Scheduled COLONOSCOPY SCREENING [facility] Hospital Test [code = COLONOSCOPY SCREENING] Future Scheduled SHINGLES VACCINES (#1) [facility] Hospital Test [code = SHINGLES VACCINES (#1)] Future Scheduled 65+ [facility]OCOCCAL [facility] Test VACCINE (1 of 1 - PPSV23) [code = 65+ PNEUMOCOCCAL VACCINE (1 of 1 - PPSV23)] Future Scheduled INFLUENZA VACCINE [facility] Test [code = INFLUENZA VACCINE] Encounters Start End Encounter Admission Attending Care Care Encounter Source Date/Time Date/Time Type Type Clinicians Facility Department ID 2022-03-19 Outpatient [facility] [id number] [place] 15:37:10 [id number] [facility] 2022-03-15 Outpatient [facility] [id number] [place] 15:47:07 [id number] Health 2021-05-12 Outpatient [facility] [id number] Common 14:36:54 [facility] 2021-05-12 Outpatient [facility] [id number] Common 11:25:42 [id number] [facility] 2021-04-30 Outpatient [facility] [id number] [place] 14:33:55 Health 2021-04-30 Outpatient TAHIRA, [facility] [id number] [place] 13:08:03 [facility] 2022-06-28 2022-06-28 [facility] Tammy Miramontes 1.2.840.1 [id number] Methodi 12:15:00 23:59:00 Encounter [place] [address].1.[address] 3.430.2.7 Hospit a .3.642647 l .8 2022-06-28 2022-06-28 Office Tammy Miramontes 1.2.840.1 [id number] Methodi 13:45:00 14:22:48 Visit [place] [address]31.1.[address] 3.430.2.7 Hospit a .3.081538 l .8 2022-06-28 2022-06-28 [facility] Tammy Miramontes 1.2.840.1 [id number] Methodi 11:06:51 12:14:00 Encounter [place] [address]10.1.[address] 3.430.2.7 Hospit a .3.771006 l .8 2022-06-28 2022-06-28 Outpatient TAMMY MIRAMONTES [facility] [id number] [place] 00:00:00 00:00:[address] 2022-06-28 2022-06-28 Outpatient TAMMY MIRAMONTES [facility] [id number] [place] 00:00:00 00:00:[address] 2022-06-28 2022-06-28 Outpatient TAMMY MIRAMONTES [facility] [id number] [place] 00:00:00 00:00:[address] 2022-06-28 2022-06-28 Travel 1.2.840.1 1.2.616.659 [id number] Methodi 00:00:00 00:00:[address] 3.430.2.7 0.2.7.3.698 Ho spita .3.409346 084.8 l .8 2022-06-20 2022-06-20 Documentat Chetan 1.2.840.1 [id number] Methodi 00:00:00 00:00:00 ion Nia 25244.1.[address] 3.430.2.7 Hospit a .3.247542 l .8 2022-06-08 2022-06-08 Treatment KulwinderTammy 1.2.840.1 104 [id number] Methodi 12:00:00 12:52:33 N[place] [address]80.1.[address] 3.430.2.7 Hospit a .3.134541 l .8 2022-06-08 2022-06-08 Outpatient KULWINDERTAMMY [facility] [id number] [place] 00:00:00 00:00:[address] 2022-06-01 2022-06-01 Treatment KulwinderTammy 1.2.840.1 104 [id number] Methodi 12:00:00 12:59:49 Nia [place] [address]183.1.[address] 3.430.2.7 Hospit a .3.963418 l .8 2022-06-01 2022-06-01 Outpatient KULWINDER, TAMMY [facility] [id number] [place] 00:00:00 00:00:[address] 2022-06-01 2022-06-01 Travel 1.2.840.1 1.2.489.721 9629 [id number] Methodi 00:00:00 00:00:[address] 3.430.2.7 0.2.7.3.698 Ho spita .3.678849 084.8 l .8 2022-05-25 2022-05-25 Treatment KulwinderTammy iraheta 1.2.840.1 104 [id number] Methodi 12:00:00 13:31:42 N[address] [place] [address]8431.1.[address] 3.430.2.7 Hospit a .3.285983 l .8 2022-05-25 2022-05-25 Outpatient KULWINDER, TAMMY [facility] [id number] [place] 00:00:00 00:00:[address] 2022-05-25 2022-05-25 Travel 1.2.840.1 1.2.014.202 5613 [id number] Methodi 00:00:00 00:00:[address] 3.430.2.7 0.2.7.3.698 Ho spita .3.769307 084.8 l .8 2022-05-23 2022-05-23 Treatment Tammy Miramontes 1.2.840.1 104 [id number] Methodi 12:00:00 13:30:10 [place] [address]696.1.[address] 3.430.2.7 Hospit a .3.500311 l .8 2022-05-23 2022-05-23 Outpatient TAMMY MIRAMONTES [facility] [id number] [place] 00:00:00 00:00:[address] 2022-05-16 2022-05-16 Treatment Tammy Miramontes 1.2.840.1 104 [id number] Methodi 12:00:00 13:52:36 [place] [address]86.1.[address] 3.430.2.7 Hospit a .3.576512 l .8 2022-05-16 2022-05-16 Outpatient TAMMY MIRAMONTES [facility] [id number] [id number] [place] 00:00:00 00:00:[address] 2022-05-09 2022-05-09 Evaluation Tammy Miramontes 1.2.840.1 10 [id number] Methodi 13:00:00 14:06:12 [place]ia [address]365.1.[address] 3.430.2.7 Hospit a .3.848173 l .8 2022-05-09 2022-05-09 Outpatient TAMMY MIRAMONTES [facility] [id number] [place] 00:00:00 00:00:[address] 2022-05-09 2022-05-09 Plan of 1.2.840.1 [id number] Methodi 00:00:00 00:00:[address] Documentat 3.430.2.7 Hos derian ion .3.326835 l .8 2022-05-09 2022-05-09 Travel 1.2.840.1 1.2.381.039 9753 [id number] Methodi 00:00:00 00:00:[address] 3.430.2.7 0.2.7.3.698 Ho spita .3.308729 084.8 l .8 2022-03-29 2022-03-29 Hospital Tammy Miramontes 1.2.840.1 [id number] Methodi 12:32:30 23:59:00 Encounter [place] [address].1.[address] 3.430.2.7 Hospit a .3.491212 l .8 2022-03-29 2022-03-29 Office Tammy Miramontes 1.2.840.1 [id number] 21 [id number] Methodi 13:00:00 13:54:40 Visit [place] [address]58.1.[address] 3.430.2.7 Hospit a .3.328165 l .8 2022-03-29 2022-03-29 Outpatient TAMMY MIRAMONTES [facility] [id number] [place] 00:00:00 00:00:[address] 2022-03-29 2022-03-29 Outpatient TAMMY MIRAMONTES [facility] [id number] [place] 00:00:00 00:00:[address] 2022-03-29 2022-03-29 Travel 1.2.840.1 1.2.348.275 5867 [id number] Methodi 00:00:00 00:00:[address] 3.430.2.7 0.2.7.3.698 Ho spita .3.337786 084.8 l .8 2022-03-25 2022-03-25 Outpatient ELDA [facility] [id number] [place] 10:00:00 10:00:00 [facility] 2022-03-24 2022-03-24 Outpatient [facility] [id number] [place] 10:00:00 10:59:37 Health 2022-03-24 2022-03-24 Office Elda [facility] 1.2.318.672 [id number] [place] 10:00:00 10:58:52 Visit Ernie ANTONIO 350.1.13.58 H ealth MEDICAL 9.2.7.2.686 PLAZA 6 [id number] 7 2022-02-21 2022-02-21 Travel 1.2.840.1 1.2.060.610 7017 [id number] Methodi 00:00:00 00:00:[address] 3.430.2.7 0.2.7.3.698 Ho spita .3.431875 084.8 l .8 2022-02-21 2022-02-21 Travel 1.2.840.1 1.2.093.921 9435 [id number] Methodi 00:00:00 00:00:[address] 3.430.2.7 0.2.7.3.698 Ho spita .3.587676 084.8 l .8 2022-01-31 2022-01-31 Outpatient MALINDA Valencia [facility] [id number] [facility] 08:00:00 08:00:00 Krishan Aquino [facility] 2021-09-02 2021-09-[address] [facility] [facility] 1.2.726.275 [id number] [place] 14:15:00 14:51:29 Visit Geraldo ANTONIO 350.1.13.58 H ealt MEDICAL 9.2.7.2.686 PLAZA 7 [id number] 7 2021-08-23 2021-08-[address] [facility] [facility] 1.2.741.681 [id number] [place] 13:15:00 13:15:26 Visit Geraldo ANTONIO 350.1.13.58 H ealth MEDICAL 9.2.7.2.686 PLAZA 2 [id number] 7 2021-08-16 2021-08-[address] [facility] 1.2.907.857 [id number] [place] 14:15:00 14:39:18 Visit Geraldo ANTONIO 350.1.13.58 H ealth MEDICAL 9.2.7.2.686 PLAZA 4 [id number] 7 2021-08-13 2021-08-13 Telephone Katherin Balderas [facility] 1.2.840.11 4 [id number] [place] 00:00:00 00:00:00 Katherin Balderas 350.1.13.58 Health MEDICAL 9.2.7.2.686 PLAZA 2 [id number] 7 2021-08-13 2021-08-13 Telephone Katherin Balderas [facility] 1.2.840.11 4 [id number] [place] 00:00:00 00:00:00 Katherin Balderas 350.1.13.58 Health MEDICAL 9.2.7.2.686 PLAZA 2 [id number] 7 2021-08-11 2021-08-[address] [facility] 1.2.840.11 4 [id number] [place] 00:00:00 00:00:00 Katherin Balderas 350.1.13.58 Health MEDICAL 9.2.7.2.686 PLAZA 8 [id number] 7 2021-08-05 2021-08-05 Office Radolivian, [facility]TP [facility] 1.2.840.114 [id number] [place] 14:15:00 15:05:49 Visit Geraldo ANTONIO 350.1.13.58 H ealth MEDICAL 9.2.7.2.686 PLAZA 5 [id number] 7 2021-06-10 2021-06-10 Office Radwan, UTP H 1.2.840.114 [id number] [place] 14:00:00 15:03:28 Visit Geraldo ANTONIO 350.1.13.58 H ealth MEDICAL 9.2.7.2.686 PLAZA 7 [id number] 7 2021-05-06 2021-05-06 Office Radwan, UTP [facility] 1.2.840.114 [id number] [place] 15:00:00 15:48:03 Visit Geraldo ANTONIO 350.1.13.58 H ealth MEDICAL 9.2.7.2.686 PLAZA 8 [id number] 7 2020-12-18 2020-12-18 [facility] Doctor ASH 1.2.840.114 [id number] Univers 00:00:00 00:00:00 Only Unassigned, JASEN 350.1.13.10 ity of [place] [facility] 4.2.7.2.686 Trung as [phone] [facility] [address] [place] 2020-12-12 2020-12-12 Outpatient R [facility] [id number] Univers 11:00:00 11:00:00 BRIAN itjared of [facility] 2020-12-12 2020-12-12 Nurse Therapy, Adc Covid Infusion [facility] 1.2.840.114 [id number] Univers 08:34:40 09:34:40 Visit Brian Saul 350.1.13.10 [place]y [place].2.[place] [phone] [facility] 0[address] [place] 2020-12-12 2020-12-12 Orders Doctor ASH 1.2.840.114 [id number] Univers 00:00:00 00:00:00 Only Unassigned, JASEN 350.1.13.10 ity of [place] [facility] 4.2.7.2.686 Trung as [phone] [facility] 00[address] [place] 2020-12-10 2020-12-10 Letter NILSA Griffin 1.2.840.114 [id number] Univers 00:00:00 00:00:00 (Out) Anabel AGGARWAL 350.1.13.10 it y of HOSPITAL 4.2.7.2.686 Trung as [id number] [facility] 019 [place] 2020-12-08 2020-12-08 Laboratory Only, Ang Db Test [facility] 1.2.8 40.114 [id number] Univers 15:10:55 16:13:06 Only Acosta Lam 350.1.13.10 ity of [place] 4.2.7.2.686 Trung as Gregory?Blea [id number] Hi jose alfred[address] [facility] 2020-12-08 2020-12-08 Outpatient R [facility] [id number] Univers 15:25:00 15:25:00 ACOSTA ity of [facility] 2020-12-08 2020-12-08 Letter Doctor NILSA 1.2.840.114 [id number] Univers 00:00:00 00:00:00 (Out) Unassigned, JASEN 350.1.13.10 ity of [place] [facility] 4.2.7.2.686 Trung as [phone] [address] 2020-12-08 2020-12-08 Letter Doctor NILSA 1.2.840.114 [id number] Univers 00:00:00 00:00:00 (Out) Unassigned, JASEN 350.1.13.10 ity of [place] [facility] 4.2.7.2.686 Trung as [phone] [address] 2020-12-08 2020-12-08 Letter Doctor NILSA 1.2.840.114 [id number] Univers 00:00:00 00:00:00 (Out) Unassigned, JASEN 350.1.13.10 ity of [place] [facility] 4.2.7.2.686 Trung as [phone] [address] 2020-12-04 2020-12-04 Refill Radwan, UTP [facility] 1.2.840.114 [id number] 00:00:00 00:00:00 Geraldo ANTONIO 350.1.13.58 MEDICAL 9.2.7.2.686 PLAZA 4 [id number] 7 2020-12-04 2020-12-04 Refill Radwan, UTP [facility] 1.2.840.114 [id number] [place] 00:00:00 00:00:00 Geraldo ANTONIO 350.1.13.58 H [facility] MEDICAL 9.2.7.2.686 PLAZA 5 [id number] 7 2020-10-27 2020-10-27 Telephone Radwan, UTP [facility] 1.2.520.429 [id number] 00:00:00 00:00:00 Geraldo ANTONIO 350.1.13.58 MEDICAL 9.2.7.2.686 PLAZA 3 [id number] 7 2020-10-27 2020-10-27 Telephone Radwan, UTP [facility] 1.2.487.131 [id number] [place] 00:00:00 00:00:00 Geraldo ANTONIO 350.1.13.58 H ealth MEDICAL 9.2.7.2.686 PLAZA 1 [id number] 7 2020-10-09 2020-10-09 EXT MHH OP Radwan, EXT [facility] 1.2.840.114 1 [id number] [place] 00:00:00 00:00:00 Geraldo LOCATION 350.1.13.58 H ealth 9.2.7.2.686 [id number] 2020-10-09 2020-10-09 EXT MHH OP Radwan, EXT MSRDP 1.2.840.114 1 [id number] [place] 00:00:00 00:00:00 Geraldo MONAE 350.1.13.58 H ealth 9.2.7.2.686 [id number] 0 2020-10-08 2020-10-[address] [facility] 1.2.840.114 [id number] 11:30:28 12:40:02 Visit Geraldo ANOTNIO 350.1.13.58 MEDICAL 9.2.7.2.686 PLAZA 5 [id number] 7 2020-10-08 2020-10-[address] [facility] 1.2.840.114 [id number] [place] 11:30:28 12:40:02 Visit Geraldo ANTONIO 350.1.13.58 H ealt MEDICAL 9.2.7.2.686 PLAZA 3 [id number] 7 2020-10-07 2020-10-[address] [facility] 1.2.840.114 [id number] 00:00:00 00:00:00 Geraldo ANTONIO 350.1.13.58 MEDICAL 9.2.7.2.686 PLAZA 7 [id number] 7 2020-10-07 2020-10-[address] [facility] [id number] 00:00:00 00:00:00 Geraldo ANTONIO [id number] H ealth MEDICAL [id number] PLAZA 3 [id number] 2020-02-17 2020-02-17 OFFICE STLMLC STLMLC [id number] Co mmon 00:00:00 00:00:00 VISIT EST Spir it PT LEVEL 3 - [facility] 2020-02-11 2020-02-11 (TEL) STLMLC STLMLC [id number] Co mmon 00:00:00 00:00:00 Spirit - [facility] 2020-01-27 2020-01-27 (TEL) STLMLC STLMLC [id number] Co mmon 00:00:00 00:00:00 Spirit - [facility] 2020-01-23 2020-01-23 OFFICE STLMLC STLMLC [id number] Co mmon 00:00:00 00:00:00 VISIT EST Spir it PT LEVEL 3 - [facility] 2019-12-31 2019-12-31 OFFICE STLMLC STLMLC [id number] Co mmon 00:00:00 00:00:00 VISIT Spirit ESTAB PT - [facility] LEVEL 4 [facility] 2019-11-18 2019-11-18 [facility] [id number] Common 10:30:00 10:30:00 t Bone Bone and Spiri t and Joint [facility] - [facility] 2019-10-16 2019-10-16 [facility] [id number] Common 09:45:00 09:45:00 t Bone Bone and Spiri t and Joint Joint - [facility] 2019-10-08 2019-10-08 [facility] [id number] Common 09:42:00 09:42:00 t Bone Bone and Spiri t and Joint Joint - [facility] 2019-10-07 2019-10-07 [facility] [id number] Common 22:11:00 22:11:00 t Bone Bone and Spiri t and Joint Joint - [facility] 2019-09-26 2019-09-26 [facility] [id number] Common 13:00:00 13:00:00 t Bone Bone and Spiri t and Joint Joint - [facility] 2019-09-23 2019-09-23 [facility] [id number] Common 15:09:00 15:09:00 t Bone Bone and Spiri t and Joint Joint - [facility] 2019-09-17 2019-09-17 Outpatient Agustina [facility] [id number] Common 10:30:00 10:30:00 t Bone Bone and Spiri t and Joint Joint - [facility] 2018-12-19 2018-12-19 Outpatient Agustina Ber[facility]ost [id number] Common 14:00:00 14:00:00 t Bone Bone and Spiri t and Joint Joint - [facility] 2018-06-07 2018-06-07 [facility]patient [facility] [id number] Common 10:30:00 10:30:00 t Bone Bone and Spiri t and Joint Joint - [facility] 2018-04-19 2018-04-19 Outpatient Agustina Pinto [id number] Common 13:30:00 13:30:00 t Bone Bone and Spiri t and Joint Joint - [facility] 2018-01-08 2018-01-08 [facility]patient [facility] [id number] Common 10:00:00 10:00:00 t Bone Bone and Spiri t and Joint Joint - [facility] Results This patient has no known results.
[2022-09-22 17:34] LABS: Absolute Lymphocytes (CBC) 1.4 K/uL (0.7-4.9); Hematocrit 40.5 % (36.0-45.0); Lymphocytes % 21.1 % (15.3-44.8); MCV 95.7 fL (80-100); MPV 8.2 fL (7.6-11.3); RBC Red Blood Cell Count 4.23 M/uL (3.86-4.86)
--- NOTE | 2022-09-22 17:36 | RAD REPORT ---
EXAM DESCRIPTION: RAD - Chest Single View - 09/22/2022 5:28 pm CLINICAL HISTORY: paresthesias left arm and face Chest pain. COMPARISON: Chest Pa And Lat (2 Views) dated 02/16/2021; Chest Pa And Lat (2 Views) dated 01/05/2021; Chest Single View dated 12/20/2020; CHEST SINGLE VIEW dated 12/10/2013 FINDINGS: Portable technique limits examination quality. The lungs are mildly emphysematous but grossly clear. The heart is normal in size. No displaced fract ures. IMPRESSION: Mild COPD.
[2022-09-22 17:42] LABS: Protime INR 1.06
--- NOTE | 2022-09-22 17:57 | RAD REPORT ---
EXAM DESCRIPTION: CT - Ct Stroke Brain Wo Cont - 09/22/2022 5:46 pm CLINICAL HISTORY: STROKE ALERT Headache, drowsiness, CVA symptomology COMPARISON: Head angio dated 09/22/2022 TECHNIQUE: All CT scans are performed using dose optimization technique as appropriate and may inclu de automated exposure control or mA/KV adjustment according to patient size. FINDINGS: No intracranial hemorrhage, hydrocephalus or extra-axial fluid collection.No areas of brai n edema or evidence of midline shift. The paranasal sinuses and mastoids are clear. The calvarium is intact. IMPRESSION: No acute intracranial abnormality.
[2022-09-22 18:01] LABS: Troponin High Sensitivity 28.3 pg/mL (<58.9)
--- NOTE | 2022-09-22 18:01 | RAD REPORT ---
EXAM DESCRIPTION: CT - Head angio - 09/22/2022 5:53 pm CLINICAL HISTORY: Paresthesia Right arm Headache, drowsiness, CVA symptomology COMPARISON: Neck Angio dated 09/22/2022; Ct Stroke Brain Wo Cont dated 09/22/2022 TECHNIQUE: CT angiography of the head was performed with MIPs. All CT scans are performed using dose optimization technique as appropriate and may include automated exposure control or mA/KV adjustment according to patient size. FINDINGS: No evidence of large vessel occlusion. No evidence of aneurysm is detected. No flow-limiti ng stenosis or vascular malformation identified. Antegrade flow is seen in the vertebral arteries. The left vertebral artery is dominant. The visualized dural venous sinuses are patent. IMPRESSION: No significant flow abnormality is detected.
[2022-09-22 18:02] LABS: Potassium 3.2 mEq/L (3.5-5.1)
--- NOTE | 2022-09-22 18:04 | RAD REPORT ---
EXAM DESCRIPTION: CT - Neck Angio - 09/22/2022 5:53 pm CLINICAL HISTORY: Paresthesia Right arm Headache, CVA symptomology COMPARISON: No comparisons TECHNIQUE: CT angiography of the neck vessels was performed with MIPs. All CT scans are performed using dose optimization technique as appropriate and may include automated exposure control or mA/KV adjustment according to patient size. FINDINGS: A left aortic arch is identified with normal three vessel configuration of the great vesse ls. No significant flow abnormality is seen of the common carotid bilaterally. Mild atherosclerotic plaqu ing is present bilaterally. No significant stenosis is identified involving the cervical segments of both internal carotid arteri es. Normal flow is seen within both vertebral arteries. Right vertebral artery is mildly diminutive. Moderate lower cervical degenerative spondylosis. IMPRESSION: No significant flow abnormality of the neck vessels is identified. NASCET criteria used. Mild 0-49% stenosis Moderate 50-69% stenosis Severe 70-99% stenosis
--- NOTE | 2022-09-22 19:13 | ER ---
Nurse's Notes [facility] Name: Yulissa Garcia Age: 71 yrs Sex: Female : 1950 Arrival Date: 09/22/2022 Time: 16:35 Bed 7 Private MD: Diagnosis: Paresthesia of skin;Essential (primary) hypertension Presentation: 09/22 16:38 Chief complaint: EMS states: patient called and said she had tingling in right hand ko1 starting about 30 minutes ago, it has improved now. Coronavirus screen: At this time, the client does not indicate any symptoms associated with coronavirus-19. Ebola Screen: No symptoms or risks identified at this time. Risk Assessment: Do you want to hurt yourself or someone else? Patient reports no desire to harm self or others. Onset of symptoms was September 22, 2022 at 16:00. 16:38 Method Of Arrival: EMS: [facility] ko1 16:38 Acuity: MATTIE 3 ko1 19:20 Initial Sepsis Screen: Does the patient meet any 2 criteria? No. Patient's initial kd3 sepsis screen is negative. Does the patient have a suspected source of infection? No. Patient's initial sepsis screen is negative. Triage Assessment: 16:40 General: Appears in no apparent distress. comfortable, Behavior is calm, cooperative, ko1 appropriate for age. Pain: Denies pain. Historical: - Allergies: 16:40 No Known Allergies; ko1 - PMHx: 16:40 Hypercholesterolemia; Hypertension; Rheumotoid Arthritis; ko1 - Immunization history:: Adult Immunizations up to date. - Social history:: Smoking status: Patient denies any tobacco usage or history of. Screenin:40 [facility] ED Fall Risk Assessment (Adult) History of falling in the last 3 months, ko1 including since admission No falls in past 3 months (0 pts) Confusion or Disorientation No (0 pts) Intoxicated or Sedated No (0 pts) Impaired Gait No (0 pts) Mobility Assist Device Used No (0 pt) Altered Elimination No (0 pt) Score/Fall Risk Level 0 - 2 = Low Risk. Abuse screen: Denies threats or abuse. Denies injuries from another. Nutritional screening: No deficits noted. Tuberculosis screening: No symptoms or risk factors identified. Assessment: 16:40 Neuro: Reports tingling in right arm up into face. Cardiovascular: No deficits noted. ko1 Respiratory: No deficits noted. GI: No deficits noted. : No deficits noted. EENT: No deficits noted. Derm: No deficits noted. Musculoskeletal: No deficits noted. 17:09 Reassessment: patient is a difficult IV stick, needs ultrasound guided IV to obtain lab ko1 work. Vital Signs: 16:40 BP 138 / 95; Pulse 83; Resp 18; Pulse Ox 100% on R/A; ko1 18:00 BP 157 / 92; Pulse 53; Resp 16; Pulse Ox 100% on R/A; ko1 19:19 BP 140 / 77; Pulse 52; Resp 17; Pulse Ox 100% on R/A; kd3 NIH Stroke Scale Scores: 17:09 NIHSS Score: 0 ms3 ED Course: 16:38 Patient arrived in ED. ko1 16:38 Yary You, RN is Primary Nurse. ko1 16:39 Misael Todd DO is Attending Physician. ms3 16:39 Triage completed. ko1 16:40 Arm band placed on right wrist. Patient placed in an exam room, on a stretcher, on ko1 monitor and storage bin tender, on pulse oximetry, Patient notified of wait time. 16:40 Patient has correct armband on for positive identification. Placed in gown. Bed in low ko1 position. Call light in reach. Side rails up X 1. Client placed on continuous cardiac and pulse oximetry monitoring. NIBP monitoring applied. monitor and storage bin tender on. Door closed. Noise minimized. Warm blanket given. 17:19 Inserted saline lock: 20 gauge in left antecubital area, using aseptic technique. nj1 ,using aseptic technique. Ultrasound guided. Catheter tip well visualized within vasculature during placement. Blood collected. 17:26 CBC with Diff Sent. ko1 17:26 Protime (+inr) Sent. ko1 17:26 Ptt, Activated Sent. ko1 17:26 High Sensitivity Troponin Sent. ko1 17:26 Basic Metabolic Panel Sent. ko1 17:30 Stroke CXR 1 View In Process Unspecified. EDMS 17:48 CT Stroke Brain w/o Contrast In Process Unspecified. EDMS 17:55 CT Head Angio In Process Unspecified. EDMS 17:55 CT Neck Angio In Process Unspecified. EDMS 19:11 Raji Mo MD is Referral Physician. ms3 19:29 No provider procedures requiring assistance completed. IV discontinued, intact, kd3 bleeding controlled, No redness/swelling at site. Pressure dressing applied. Administered Medications: 19:22 Drug: Potassium Chloride PO 40 mEq Route: PO; kd3 Medication: 16:40 VIS not applicable for this client. ko1 Outcome: 19:12 Discharge ordered by . ms3 19:29 Discharged to home ambulatory. kd3 19:29 Condition: stable 19:29 Discharge instructions given to patient, family, Instructed on discharge instructions, follow up and referral plans. Demonstrated understanding of instructions, follow-up care. 19:29 Patient left the ED. kd3 NIH Stroke Scale - NIH Stroke Score Date: 09/22/2022 Time: 17:09 Total Score = 0 10. Dysarthria (speech clarity - read or repeat words) - 0(Normal) 11. Extinction and Inattention (visual/tactile/auditory/spatial/personal) - 0(No abnormality) 1a. Level of Consciousness (LOC) - 0(Alert) 1b. Level of Consciousness (LOC) (Month \T\ Age) - 0(Both) 1c. LOC Commands (Open \T\ Closes Eyes/[employer]) - 0(Both) 2. Best Gaze (Lateral Gaze Paresis) - 0(Normal) 3. Visual Field Loss - 0(No visual loss) 4. Facial Palsy - 0(Normal) 5a. Left Arm: Motor (10-second hold) - 0(No drift) 5b. Right Arm: Motor (10-second hold) - 0(No drift) 6a. Left Leg: Motor (5-second hold - always test supine) - 0(No drift) 6b. Right Leg: Motor (5-second hold - always test supine) - 0(No drift) 7. Limb Ataxia (finger/nose \T\ heel/baum - test with eyes open) - 0(Absent) 8. Sensory Loss (pinprick arms/legs/face) - 0(Normal) 9. Best Language: Aphasia (description/naming/reading) - 0(No aphasia) Initials: ms3 Signatures: Dispatcher [employer] EDMS Misael Todd DO DO ms3 Marissa Tomas RN RN kd3 Yary You, RN RN ko1 Ketty Rogers RN RN nj1
--- NOTE | 2022-09-22 19:13 | EDPHYS ---
Physician Documentation [facility] Name: Yulissa Garcia Age: 71 yrs Sex: Female : 1950 Arrival Date: 09/22/2022 Time: 16:35 Bed 7 Private MD: ED Physician Misael Todd HPI: 09/22 17:09 This 71 yrs old Female presents to ER via EMS with complaints of paresthesias. ms3 17:09 71-year-old female with past medical history of hypercholesterolemia, hypertension, ms3 rheumatoid arthritis presents for right arm paresthesias. Patient states paresthesias began in her fingertips and migrated up her arm. Patient states she is also having right facial tingling at this time. Patient states she did develop a headache and does have nausea. Patient states she took aspirin prior to arrival. Patient states her symptoms began at approximately 3:30 PM. Historical: - Allergies: 16:40 No Known Allergies; ko1 - PMHx: 16:40 Hypercholesterolemia; Hypertension; Rheumotoid Arthritis; ko1 - Immunization history:: Adult Immunizations up to date. - Social history:: Smoking status: Patient denies any tobacco usage or history of. ROS: 17:09 Constitutional: Negative for fever, and chills. ENT: Negative for injury, pain, and ms3 discharge, Neck: Negative for injury, pain, and swelling, Cardiovascular: Negative for chest pain, and palpitations. Respiratory: Negative for shortness of breath, cough, wheezing, and pleuritic chest pain, Abdomen/GI: Negative for abdominal pain, nausea, vomiting, diarrhea, and constipation, MS/Extremity: Negative for injury and deformity, Skin: Negative for injury, rash, and discoloration. 17:09 Neuro: Positive for Paresthesias right arm. 17:09 All other systems are negative. Exam: 17:09 Constitutional: This is a well developed, well nourished patient who is awake, alert, ms3 and in no acute distress. Head/Face: Normocephalic, atraumatic. Neck: Trachea midline, no cervical lymphadenopathy. Supple, full range of motion without nuchal rigidity, or vertebral point tenderness. No Meningismus. Chest/axilla: Normal chest wall appearance and motion. Nontender with no deformity. Cardiovascular: Regular rate and rhythm with a normal S1 and S2. No gallops, murmurs, or rubs. Normal PMI, no JVD. No pulse deficits. Respiratory: Lungs have equal breath sounds bilaterally, clear to auscultation and percussion. No rales, rhonchi or wheezes noted. No increased work of breathing, no retractions or nasal flaring. Abdomen/GI: Soft, non-tender, with normal bowel sounds. No distension or tympany. No guarding or rebound. No evidence of tenderness throughout. Skin: Warm, dry with normal turgor. Normal color with no rashes, no lesions, and no evidence of cellulitis. MS/ Extremity: Pulses equal, no cyanosis. Neurovascular intact. Full, normal range of motion. 17:09 Neuro: Orientation: is normal, Mentation: is normal, Memory: is normal, Cranial nerves: CN I not tested, CN II- XII are normal as tested, Cerebellar function: is grossly normal, Motor: is normal, Sensation: is normal, no obvious gross deficits. 17:12 ECG was reviewed by the Attending Physician. ms3 Vital Signs: 16:40 BP 138 / 95; Pulse 83; Resp 18; Pulse Ox 100% on R/A; ko1 18:00 BP 157 / 92; Pulse 53; Resp 16; Pulse Ox 100% on R/A; ko1 19:19 BP 140 / 77; Pulse 52; Resp 17; Pulse Ox 100% on R/A; kd3 NIH Stroke Scale Scores: 17:09 NIHSS Score: 0 ms3 MDM: 16:54 Patient medically screened. ms3 17:11 Differential diagnosis: Paresthesias vs Electrolyte abnormality vs ICH. ms3 19:10 Management of patient was discussed with the following: Primary Care Provider: ms3 Discussed case with Dr Mo and would like patient started on ASA and folic acid.. 19:50 Data reviewed: vital signs, nurses notes, lab test result(s), EKG, radiologic studies, ms3 and as a result, I will discharge patient. Consideration of Admission/Observation Escalation of care including admission/observation considered. I considered the following discharge prescriptions or medication management in the emergency department Medications were administered in the Emergency Department. See MAR. Independent interpretation of the following test(s) in the Emergency Department EKG: See my EKG interpretation above athletic monitor: rate is 56 beats/min, Rhythm is normal sinus rhythm, regular, with no ectopy, Interpretation: normal rhythm, bradycardia. Care significantly affected by the following chronic conditions: Hypertension. Counseling: I had a detailed discussion with the patient and/or guardian regarding: the historical points, exam findings, and any diagnostic results supporting the discharge/admit diagnosis, lab results, radiology results, the need for outpatient follow up, to return to the emergency department if symptoms worsen or persist or if there are any questions or concerns that arise at home. Response to treatment: the patient's symptoms have resolved after treatment, the patient's condition has returned to base line, and as a result, I will discharge patient. Special discussion: I discussed with the patient/guardian in detail that at this point there is no indication for admission to the hospital. It is understood, however, that if the symptoms persist or worsen the patient needs to return immediately for re-evaluation. 09/22 16:50 Order name: Basic Metabolic Panel; Complete Time: 18:04 ms3 09/22 16:50 Order name: CBC with Diff; Complete Time: 18:04 ms3 09/22 16:50 Order name: High Sensitivity Troponin; Complete Time: 18:04 ms3 09/22 16:50 Order name: Protime (+inr); Complete Time: 18:04 ms3 09/22 16:50 Order name: Ptt, Activated; Complete Time: 18:04 ms3 09/22 16:50 Order name: CT Stroke Brain w/o Contrast; Complete Time: 18:04 ms3 09/22 16:50 Order name: Stroke CXR 1 View; Complete Time: 18:04 ms3 09/22 17:00 Order name: CT Head Angio; Complete Time: 18:04 ms3 09/22 17:00 Order name: CT Neck Angio; Complete Time: 18:33 ms3 09/22 16:50 Order name: EKG; Complete Time: 16:50 ms3 09/22 16:50 Order name: Accucheck; Complete Time: 16:56 ms3 09/22 16:50 Order name: Cardiac monitoring; Complete Time: 16:55 ms3 09/22 16:50 Order name: EKG - Nurse/Tech; Complete Time: 17:08 ms3 09/22 16:50 Order name: IV Saline Lock; Complete Time: 17:25 ms3 09/22 16:50 Order name: Labs collected and sent; Complete Time: 17:25 ms3 08 16:50 Order name: NPO; Complete Time: 16:55 ms3 08 16:50 Order name: O2 Per Protocol; Complete Time: 16:56 ms3 08 16:50 Order name: O2 Sat Monitoring; Complete Time: 16:56 ms3 08 16:50 Order name: Stroke Swallow Screen; Complete Time: 16:56 ms3 EC:12 Rate is 53 beats/min. Rhythm is regular. QRS [place] is Normal. NC interval is normal. QRS ms3 interval is normal. Clinical impression: Sinus bradycardia. Interpreted by me. Reviewed by me. Administered Medications: 19:22 Drug: Potassium Chloride PO 40 mEq Route: PO; kd3 Disposition Summary: 09/22/22 19:12 Discharge Ordered Location: Home ms3 Condition: Stable ms3 Diagnosis - Paresthesia of skin ms3 - Essential (primary) hypertension ms3 Followup: ms3 - With: Raji Mo MD - When: 2 - 3 days - Reason: Recheck today's complaints Discharge Instructions: - Discharge Summary Sheet ms3 - Hypertension, Adult ms3 - Paresthesia, [id number] ms3 - Hypokalemia ms3 Forms: - Medication Reconciliation Form ms3 - Thank You Letter ms3 - Antibiotic Education ms3 - Prescription Opioid Use ms3 Prescriptions: - aspirin 81 mg Oral capsule - take 1 capsule by ORAL route daily; 30 capsule; Refills: 0, Product Selection ms3 Permitted NIH Stroke Scale - NIH Stroke Score Date: 09/22/2022 Time: 17:09 Total Score = 0 10. Dysarthria (speech clarity - read or repeat words) - 0(Normal) 11. Extinction and Inattention (visual/tactile/auditory/spatial/personal) - 0(No abnormality) 1a. Level of Consciousness (LOC) - 0(Alert) 1b. Level of Consciousness (LOC) (Month \T\ Age) - 0(Both) 1c. LOC Commands (Open \T\ Closes Eyes/Acetylene Burner) - 0(Both) 2. Best Gaze (Lateral Gaze Paresis) - 0(Normal) 3. Visual Field Loss - 0(No visual loss) 4. Facial Palsy - 0(Normal) 5a. Left Arm: Motor (10-second hold) - 0(No drift) 5b. Right Arm: Motor (10-second hold) - 0(No drift) 6a. Left Leg: Motor (5-second hold - always test supine) - 0(No drift) 6b. Right Leg: Motor (5-second hold - always test supine) - 0(No drift) 7. Limb Ataxia (finger/nose \T\ heel/baum - test with eyes open) - 0(Absent) 8. Sensory Loss (pinprick arms/legs/face) - 0(Normal) 9. Best Language: Aphasia (description/naming/reading) - 0(No aphasia) Initials: ms3 Signatures: Dispatcher [employer] EDMS Misael Todd, DO ms3 Marissa Tomas, RN RN kd3 Yary You, RN RN ko1
[2022-09-22] MEDS ORDERED: POTASSIUM CL SA 10 MEQ TAB PO ONE (19:21)
[2022-09-22] MEDS ORDERED: MORPHINE 4 MG/ML SYR ONE (19:42)
[2022-09-22] MEDS ORDERED: ONDANSETRON 4 MG/2 ML VIAL ONE (19:42)
[2022-09-22 20:21] VITALS: O2SAT 100
[2022-09-22 20:32] VITALS: BP 140/77
--- NOTE | 2022-09-23 14:48 | EKG ---
Test Date: 2022-09-22 Test Time: 17:06:06 Laboratory Coordinator: JALEEL MEASUREMENT RESULTS: Intervals: Rate: 53 VA: 170 QRSD: 94 QT: 476 QTc: 446 [place]: P: 28 VA: 170 QRS: -36 T: 47 INTERPRETIVE STATEMENTS: Sinus bradycardia Left axis deviation Abnormal ECG Compared to ECG 12/20/2020 19:19:34 Left-axis deviation now present Electronically Signed On 09-23-22 14:44:35 CDT by Everton Campa
== END 2022-09-22 19:29 | disposition home or self-care (01) ==
LOC: ER 16:35
DX: R20.2 Paresthesia of skin (principal); I10 Essential (primary) hypertension; E78.00 Pure hypercholesterolemia, unspecified
CPT/HCPCS: 93005; 85025; 80048; 36415; 85610; 82565; 85730; 84484; 70496; 70498; 70450; 71045; 99285; Q9967; J2405

== ENCOUNTER 2024-07-25 12:07 | Emergency (ER) | payer OTHER ==
[2024-07-25 13:19] LABS: Absolute Eosinophils 0.1 K/uL (0-0.5); Absolute Lymphocytes (CBC) 1.2 K/uL (0.7-4.9); Absolute Monocytes 0.5 K/uL (0.1-1.3); Absolute Neutrophil 3.4 K/uL (1.8-8.0); Basophils % 0.8 % (0-1.3); Eosinophils % 1.4 % (0-4.4); Hematocrit 37.4 % (36.0-45.0); Hemoglobin 12.3 g/dL (12.0-15.0); Lymphocytes % 22.5 % (15.3-44.8); MCH 30.2 pg (27.0-35.0); MCHC 32.9 g/dL (32.0-36.0); MCV 91.8 fL (80-100); MPV 8.4 fL (7.6-11.3); Monocytes % 9.4 % (3.3-12.3); Neutrophils % 65.9 % (41.7-73.7); Nucleated Red Blood Cells % 0.1 % (0-0); Platelets 198 thou/uL (152-406); RBC Red Blood Cell Count 4.08 M/uL (3.86-4.86); Red Cell Distribution Width 16.2 % (12.1-15.2)
[2024-07-25 13:33] LABS: PT Prothrombin Time 12.4 SECONDS (10-13.0); Protime INR 1.09
[2024-07-25 13:48] LABS: ALT/SGPT 22 U/L (13-56); AST/SGOT 19 U/L (15-37); Albumin 3.2 g/dL (3.4-5.0); Alkaline Phosphatase 143 U/L (45-117); Anion Gap 6.8 mEq/L (5.0-15.0); BUN Blood Urea Nitrogen 17 mg/dL (7-18); Bicarbonate 30 mEq/L (21-32); Bilirubin Direct < 0.2 mg/dL (0-0.2); Bilirubin Indirect, Calculated 0.1 mg/dL (0.2-0.8); Bilirubin Total 0.3 mg/dL (0.2-1.0); Globulin 3.3 g/dL (2.3-3.5); Glomerular Filtration Rate 58 ml/min (=/>90); Glucose Level 92 mg/dL (74-106); NT PRO-BNP 215 pg/mL (<125); Potassium 3.8 mEq/L (3.5-5.1); Protein, Total 6.5 g/dL (6.4-8.2); Sodium Level 145 mEq/L (136-145); Troponin High Sensitivity 25.2 pg/mL (<58.9)
--- NOTE | 2024-07-25 15:59 | RAD REPORT ---
EXAM: CT Chest For Pe Angio TECHNIQUE: CT angiogram of the chest was performed following intravenous contrast administration, inc luding sagittal and coronal as well as maximum intensity projection reformats. One or more of the following dose reduction techniques were used: Automated exposure control, adjustment of the mA and k V according to patient size, and iterative reconstruction. Unless otherwise specified, incidental findings do not require dedicated imaging follow-up. INDICATION: [facility] DYSPNEA / COMPARISON: 12/21/2020. FINDINGS: LINES/TUBES: None. PULMONARY ARTERIES: Main pulmonary arteries are normal in caliber. No filling defects within the pul monary arteries to suggest pulmonary embolus. LUNGS AND AIRWAYS: Peripheral streaky and predominantly dependent opacities with volume loss, may rel ate to resolving pneumonia or atelectasis/scarring. The lungs and central airways are otherwise normal without focal abnormality. PLEURA: No effusion or pneumothorax. HEART AND MEDIASTINUM: The visualized thyroid gland is normal. No mediastinal, hilar, or axillary lym phadenopathy. Heart is unremarkable. No pericardial effusion. SOFT TISSUES AND BONES: No acute osseous abnormality. No significant soft tissue finding. UPPER ABDOMEN: Stable cystic lesions of the left liver lobe, largest measuring 5.2 cm, demonstrating calcified margins. IMPRESSION: No evidence of acute central pulmonary emboli. No suspicious intrathoracic findings, with residual st reaky peripheral opacity suggesting resolving pneumonia versus chronic atelectasis or scarring..
--- NOTE | 2024-07-25 16:24 | EDPHYS ---
Physician Documentation [facility] Name: Yulissa Garcia Age: 73 yrs Sex: Female : 1950 Arrival Date: 07/25/2024 Time: 12:07 Bed 13 Private MD: ED Physician Misael Todd HPI: 07/25 13:09 This 73 yrs old Female presents to ER via Ambulatory with complaints of ms3 Shortness Of Breath, possible blood clots. 13:09 73-year-old female with past medical history of hypercholesterolemia, hypertension, ms3 rheumatoid arthritis presents to the emergency department for elevated D-dimer that was drawn at Dr. Sasha Mo's office. Patient states she was contacted by her primary care physician and told to come to the emergency department for elevated D-dimer. Patient states D-dimer was drawn 24 hours ago. Patient states she has had shortness of breath for 2 weeks and has become worse this week. Patient notes she has had an ongoing headache and fatigue.. Historical: - Allergies: 12:43 No Known Allergies; iw - PMHx: 12:42 Hypercholesterolemia; Hypertension; Rheumotoid Arthritis; iw - PSHx: 12:43 hysterectomy; lumbar fusion; iw - Immunization history:: Adult Immunizations up to date, . - Infectious Disease History:: Denies. - Social history:: Smoking status: Patient denies any tobacco usage or history of. Patient uses. ROS: 13:09 Constitutional: Negative for fever, and chills. Cardiovascular: Negative for chest ms3 pain, and palpitations. 13:09 MS/Extremity: Negative for injury and deformity, Skin: Negative for injury, rash, and discoloration, 13:09 Respiratory: Positive for shortness of breath, Exam: 13:09 ECG was reviewed by the Attending Physician. ms3 13:09 Constitutional: This is a well developed, well nourished patient who is awake, alert, ms3 and in no acute distress. Cardiovascular: Regular rate and rhythm with a normal S1 and S2. No gallops, murmurs, or rubs. Normal PMI, no JVD. No pulse deficits. Respiratory: Lungs have equal breath sounds bilaterally, clear to auscultation and percussion. No rales, rhonchi or wheezes noted. No increased work of breathing, no retractions or nasal flaring. Abdomen/GI: Soft, non-tender, with normal bowel sounds. No distension or tympany. No guarding or rebound. No evidence of tenderness throughout. Skin: Warm, dry with normal turgor. Normal color with no rashes, no lesions, and no evidence of cellulitis. MS/ Extremity: Pulses equal, no cyanosis. Neurovascular intact. Full, normal range of motion. Vital Signs: 12:40 BP 168 / 76; Pulse 60; Resp 16; Temp 97.6; Pulse Ox 97% on R/A; Weight 81.65 kg; Height iw 5 ft. 7 in. ; 14:12 BP 171 / 86; ll1 15:00 BP 156 / 68; Pulse 58; Resp 16; Pulse Ox 97% ; db 15:30 BP 164 / 68; Pulse 59; Resp 17; Pulse Ox 95% ; db 16:00 BP 165 / 75; Pulse 55; Resp 15; Pulse Ox 96% on R/A; db 12:40 Body Mass Index 28.19 (81.65 kg, 170.18 cm) iw MDM: 12:22 Medical Screening Exam initiated ms3 13:09 Differential diagnosis: Anemia Myocardial Infarction pneumonia, pulmonary edema, ms3 Pulmonary Embolism. 21:42 Data reviewed: vital signs, nurses notes, lab test result(s), EKG, radiologic studies, ms3 and as a result, I will discharge patient. Independent interpretation of the following test(s) in the Emergency Department EKG: See my EKG interpretation above. Counseling: I had a detailed discussion with the patient and/or guardian regarding the historical points, exam findings, and any diagnostic results supporting the discharge/admit diagnosis, lab results, radiology results, the need for outpatient follow up, to return to the emergency department if symptoms worsen or persist or if there are any questions or concerns that arise at home. Special discussion: Based on the patient's history, exam, and Dx evaluation, there is no indication for emergent intervention or inpatient Tx. It is understood by the patient/guardian that if the Sx's persist or worsen they need to return immediately for re-evaluation. ED course: Discussed CT PE findings with patient and her family. Patient to follow-up with her primary care physician in 2 to 3 days. Patient understands and agrees with plan. All questions were answered. Return precautions discussed include worsening symptoms, or any other concerns. On reevaluation patient is alert and orient x 4, no apparent distress, nontoxic-appearing, speaking full sentences. 07/25 12:30 Order name: Basic Metabolic Panel; Complete Time: 15:29 ms3 07/25 12:30 Order name: CBC with Diff; Complete Time: 15:29 ms3 07/25 12:30 Order name: LFT's; Complete Time: 15:29 ms3 07/25 12:30 Order name: Magnesium; Complete Time: 15:29 ms3 07/25 12:30 Order name: NT PRO-BNP; Complete Time: 15:29 ms3 07/25 12:30 Order name: PT-INR; Complete Time: 15:29 ms3 07/25 12:30 Order name: Troponin HS; Complete Time: 15:29 ms3 07/25 15:30 Order name: Troponin High Sensitivity; Complete Time: 16:22 ms3 07/25 12:30 Order name: CT Chest For PE Angio; Complete Time: 16:14 ms3 07/25 12:30 Order name: EKG; Complete Time: 12:31 ms3 07/25 12:30 Order name: Cardiac monitoring; Complete Time: 14:01 ms3 07/25 12:30 Order name: EKG - Nurse/Tech; Complete Time: 14:01 ms3 07/25 12:30 Order name: IV Saline Lock; Complete Time: 13:34 ms3 07/25 12:30 Order name: Labs collected and sent; Complete Time: 13:34 ms3 07/25 12:30 Order name: O2 Per Protocol; Complete Time: 14:10 ms3 07/25 12:30 Order name: O2 Sat Monitoring; Complete Time: 14:10 ms3 EC:09 Rate is 63 beats/min. Rhythm is regular. Left axis deviation noted. MA interval is ms3 normal. QRS interval is normal. Clinical impression: NSR w/ Non-specific ST/T Changes. Interpreted by me. Reviewed by me. Administered Medications: No medications were administered Disposition Summary: 07/25/24 16:23 Discharge Ordered Notes: Location: Home ms3 Condition: Stable ms3 Diagnosis - Shortness of breath ms3 Followup: ms3 - With: Private Physician - When: 2 - 3 days - Reason: Recheck today's complaints Discharge Instructions: - Discharge Summary Sheet ms3 - Shortness of Breath, Adult ms3 Forms: - Medication Reconciliation Form ms3 - Antibiotic Education ms3 - Prescription Opioid Use ms3 - Patient Portal Instructions ms3 - Leadership Thank You Letter ms3 Signatures: Dispatcher [employer] Marta Gray, RN RN Misael Martin DO DO ms3 Corrections: (The following items were deleted from the chart) 15:30 15:30 Troponin High Sensitivity+[id number].LAB.BRZ ordered. ED EDHI
--- NOTE | 2024-07-25 16:24 | ER ---
Nurse's Notes [facility] Name: Yulissa Garcia Age: 73 yrs Sex: Female : 1950 Arrival Date: 07/25/2024 Time: 12:07 Bed 13 Private MD: Diagnosis: Shortness of breath Presentation: 07/25 12:40 Chief complaint: Patient states: got a phone from Dr. Tara Mo because her Ddimer iw was high, she is having trouble breathing and headache for two weeks, she had COVID a month ago , today she felt worse with her SOB and she has sharp pain off and on in her chest , and her right arm has been feeling numb the past couple days. Coronavirus screen: Client presents with at least one sign or symptom that may indicate coronavirus-19. Ebola Screen: No symptoms or risks identified at this time. Initial Sepsis Screen: Does the patient meet any 2 criteria? No. Patient's initial sepsis screen is negative. Does the patient have a suspected source of infection? No. Patient's initial sepsis screen is negative. Risk Assessment: Do you want to hurt yourself or someone else? Patient reports no desire to harm self or others. Onset of symptoms was July 24, 2019. 12:40 Method Of Arrival: Ambulatory iw 12:40 Acuity: MATTIE 3 iw Historical: - Allergies: 12:43 No Known Allergies; iw - PMHx: 12:42 Hypercholesterolemia; Hypertension; Rheumotoid Arthritis; iw - PSHx: 12:43 hysterectomy; lumbar fusion; iw - Immunization history:: Adult Immunizations up to date, . - Infectious Disease History:: Denies. - Social history:: Smoking status: Patient denies any tobacco usage or history of. Patient uses. Screenin:52 [facility] ED Fall Risk Assessment (Adult) History of falling in the last 3 months, db including since admission No falls in past 3 months (0 pts) Confusion or Disorientation No (0 pts) Intoxicated or Sedated No (0 pts) Impaired Gait No (0 pts) Mobility Assist Device Used No (0 pt) Altered Elimination No (0 pt) Score/Fall Risk Level 0 - 2 = Low Risk Oriented to surroundings, Maintained a safe environment. Abuse screen: Denies threats or abuse. Denies injuries from another. Nutritional screening: No deficits noted. Tuberculosis screening: No symptoms or risk factors identified. Assessment: 15:00 Reassessment: Patient appears in no apparent distress at this time. Patient and/or db family updated on plan of care and expected duration. Pain level reassessed. Patient is alert, oriented x 3, equal unlabored respirations, skin warm/dry/pink. General: Appears in no apparent distress. comfortable, Behavior is calm, cooperative. 16:30 Reassessment: Patient appears in no apparent distress at this time. Patient and/or db family updated on plan of care and expected duration. Pain level reassessed. Patient is alert, oriented x 3, equal unlabored respirations, skin warm/dry/pink. General: Appears in no apparent distress. comfortable, Behavior is calm, cooperative. Pain: Denies pain. Neuro: Level of Consciousness is awake, alert, obeys commands, Oriented to person, place, time, situation. Cardiovascular: Rhythm is regular. Respiratory: Airway is patent Respiratory effort is even, unlabored. Vital Signs: 12:40 BP 168 / 76; Pulse 60; Resp 16; Temp 97.6; Pulse Ox 97% on R/A; Weight 81.65 kg; Height iw 5 ft. 7 in. ; 14:12 BP 171 / 86; ll1 15:00 BP 156 / 68; Pulse 58; Resp 16; Pulse Ox 97% ; db 15:30 BP 164 / 68; Pulse 59; Resp 17; Pulse Ox 95% ; db 16:00 BP 165 / 75; Pulse 55; Resp 15; Pulse Ox 96% on R/A; db 12:40 Body Mass Index 28.19 (81.65 kg, 170.18 cm) iw ED Course: 12:11 Patient arrived in ED. al6 12:12 Misael Todd DO is Attending Physician. ms3 12:42 Triage completed. iw 13:26 Inserted saline lock: 22 gauge in right hand, using aseptic technique. Blood collected. ll1 Flushed with 10 mL NS. 13:38 Arm band placed on Patient placed in an exam room, on a stretcher. ll1 14:26 Opal Augustine, RN is Primary Nurse. db 14:[address] via wheelchair. db 14:26 Inserted saline lock: 22 gauge in left wrist, using aseptic technique. Flushed with 10 db mL NS. 14:36 CT Chest For PE Angio In Process Unspecified. EDMS 15:43 Repeat lab(s) drawn. by me, sent to lab. db 16:52 No provider procedures requiring assistance completed. IV discontinued, intact, db bleeding controlled, No redness/swelling at site. 16:52 Patient has correct armband on for positive identification. Bed in low position. Call db light in reach. Side rails up X 1. Provided Education on: ADMISSION. Client placed on continuous cardiac and pulse oximetry monitoring. NIBP monitoring applied. manager family on. Pulse ox on. NIBP on. Warm blanket given. Pillow given. Administered Medications: No medications were administered Medication: 16:52 VIS not applicable for this client. db Outcome: 16:23 Discharge ordered by . ms3 16:52 Discharged to home ambulatory, with family, db 16:52 Condition: stable 16:52 Discharge instructions given to patient, family, Instructed on discharge instructions, follow up and referral plans. 16:55 Patient left the ED. db Signatures: Dispatcher [employer] EDWA Marta Christiansen, RN DAMEON iw Tyler Contreras RN RN ll1 Misael Todd DO DO ms3 Opal Augustine, RN RN db Kathy [email or web address]
[2024-07-25 17:22] VITALS: TEMP 97.6
[2024-07-25 17:26] VITALS: BP 165/75; O2SAT 96
--- NOTE | 2024-07-26 14:17 | EKG ---
Test Date: 2024-07-25 Test Time: 12:48:23 Behavioral Health Counselor: FRANDY MEASUREMENT RESULTS: Intervals: Rate: 63 VA: 178 QRSD: 86 QT: 468 QTc: 478 [place]: P: 45 VA: 178 QRS: -19 T: 43 INTERPRETIVE STATEMENTS: Normal sinus rhythm Possible Anterior infarct, age undetermined Abnormal ECG Compared to ECG 09/22/2022 17:06:06 Myocardial infarct finding now present Sinus bradycardia no longer present Left-axis deviation no longer present Electronically Signed On 07-26-24 14:13:34 CDT by Raphael Deglado
== END 2024-07-25 16:55 | disposition home or self-care (01) ==
LOC: ER 12:07
DX: R06.02 Shortness of breath (principal); I10 Essential (primary) hypertension; E78.00 Pure hypercholesterolemia, unspecified
CPT/HCPCS: 93005; 85025; 80048; 36415; 83735; 85610; 80076; 84484 ×2; 83880; 71275; 99285; Q9967